=== PATIENT | female | born 2000 | race Caucasian/White ===

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

== ENCOUNTER 2019-05-21 12:15 | Outpatient (REF) | payer BC, SELFPAY ==
[2019-05-22 13:16] LABS: Chlamydia Result Negative (Negative)
[2019-05-22 15:16] LABS: GC Result Negative (Negative)
== END 2019-05-21 12:35 ==
LOC: LBO 12:15
PROVIDERS: PCP Pediatrics; Visit Provider Nurse Practitioner Family
DX: Z11.3 Encounter for screening for infections with a predominantly sexual mode of transmission (principal)
CPT/HCPCS: 87491; 87591

== ENCOUNTER 2021-06-22 11:09 | Outpatient (REF) | payer BC, SELFPAY ==
--- NOTE | 2021-06-22 10:30 | PAPFT_PTH ---
PATIENT: Cathleen Gray LOC: [facility] U#:[id number] AGE/SX: 20/F ROOM: RE06/22/[address]: LEXA Shirley : 2000 BED: DIS: 06/22/2021 SPEC #: [id number] RECD: 06/22/21 12:50 STATUS: ROSALINDA RERanjan #: [id number] PEYMAN: 06/22/21 10:[address]: Anne Mehta DEPT: [facility] RECD BY: Juhi Bhatia ENTERED: 06/22/21 12:50 SP TYPE: PAPFT ASTRID DR: Kim Nelson Tissues: 1 - CX/ENDOCX FOR PAP SMEARS Procedures: PAP THIN PREP/UVM Screening Comments: [id number]
[2021-06-24 07:27] LABS: Chlamydia Result Negative (Negative); GC Result Negative (Negative)
== END 2021-06-22 11:10 | disposition home or self-care (01) ==
LOC: LBN 11:09
PROVIDERS: PCP Nurse Practitioner Family; Visit Provider Nurse Practitioner Family
DX: Z11.3 Encounter for screening for infections with a predominantly sexual mode of transmission (principal); Z12.4 Encounter for screening for malignant neoplasm of cervix
CPT/HCPCS: 87491; 87591; 88142

== ENCOUNTER 2022-02-23 02:20 | Outpatient (CLI) | payer BC, SELFPAY ==
[2022-02-23 10:41] LABS: Kit/Specimen SENT
[2022-02-23 10:48] LABS: Abs Immature Grans 0.02 10^3/uL (0.0-0.06); Absolute Basophil Count 0.03 10^3/uL (0.0-0.2); Absolute Eosinophil Count 0.05 10^3/uL (0.0-0.7); Absolute Lymphocyte Count 1.71 10^3/uL (1.2-3.4); Absolute Neutrophil Count 4.41 10^3/uL (1.2-6.7); Basophils % 0.5; Eosinophils % 0.8; HCT 34.8 % (36.0-46.0); Immature Grans % 0.3; Lymphocytes % 25.8; MCH 30.5 pg (27.0-33.0); MCHC 34.5 % (32.0-36.0); MCV 88 fL (80-95); MPV 9.9 fL (8.0-11.0); Neutrophils % 66.6; Platelet Count 214 10^3/uL (130-400); RBC 3.94 10^6/uL (3.93-5.22); RDW 12.3 % (11.7-14.6); RDW-SD 39.8 fL; WBC 6.62 10^3/uL (4.4-10.8)
[2022-02-23 13:22] LABS: *AMPHETAMINES SCREEN URINE Negative (Negative); *BARBITURATES SCREEN URINE Negative (Negative); *BENZODIAZEPINES SCREEN URINE Negative (Negative); Cannabinoids THC Negative (Negative); Cocaine Screen,Urine Negative (Negative); METHADONE URINE SCREEN Negative (Negative); OPIATES URINE SCREEN Negative (Negative)
[2022-02-23 13:34] LABS: Tricyclic Antidepressants Negative (Negative)
[2022-02-24 09:41] LABS: Hepatitis B Surface Ag Negative (Negative)
[2022-02-24 10:08] LABS: Hepatitis C Ab w Rflx HCV PCR Negative (Negative)
[2022-02-24 10:28] LABS: HIV-1/2 Ag & Ab Screen Negative (Negative)
[2022-02-24 11:11] LABS: Varicella IgG Antibody Negative (See Note)
[2022-02-24 11:17] LABS: Rubella IgG Ab (UVM) Positive (See Note)
[2022-02-25 16:22] LABS: Syphilis IgG w/Reflex Nonreactive (Nonreactive)
[2022-02-27 15:18] LABS: Buprenorphine Negative ng/mL (Cutoff: 5.0); Norbuprenorphine Negative ng/mL (Cutoff: 2.5)
[2022-03-19 18:11] LABS: Result Summary NEGATIVE; Specimen WB Whole Blood
== END 2022-02-23 02:21 | disposition home or self-care (01) ==
LOC: LBO 02:20
PROVIDERS: PCP Nurse Practitioner Family; Visit Provider Advanced Practice Midwife
DX: Z32.01 Encounter for pregnancy test, result positive (principal); Z34.01 Encounter for supervision of normal first pregnancy, first trimester
CPT/HCPCS: 80307; 81220; 81222; 86787; 86803; 86850; 86900; 86901; 87340; 87389; 85025; 86762; 86780; 87086

== ENCOUNTER 2022-03-23 12:57 | Outpatient (REF) | payer BC, SELFPAY ==
[2022-03-24 14:44] LABS: Chlamydia Result Negative (Negative); GC Result Negative (Negative)
== END 2022-03-23 12:58 | disposition home or self-care (01) ==
LOC: LBN 12:57
PROVIDERS: PCP Nurse Practitioner Family; Visit Provider Advanced Practice Midwife
DX: Z34.92 Encounter for supervision of normal pregnancy, unspecified, second trimester (principal); Z3A.16 16 weeks gestation of pregnancy
CPT/HCPCS: 87491; 87591

== ENCOUNTER 2022-06-18 02:47 | Outpatient (CLI) | payer BC, SELFPAY ==
[2022-06-18 10:06] LABS: Abs Immature Grans 0.03 10^3/uL (0.0-0.06); Absolute Basophil Count 0.03 10^3/uL (0.0-0.2); Absolute Eosinophil Count 0.07 10^3/uL (0.0-0.7); Absolute Lymphocyte Count 1.67 10^3/uL (1.2-3.4); Absolute Monocyte Count 0.65 10^3/uL (0.1-0.8); Absolute Neutrophil Count 6.45 10^3/uL (1.2-6.7); Basophils % 0.3; Eosinophils % 0.8; HCT 32.6 % (36.0-46.0); HGB 10.9 g/dL (11.2-15.7); Immature Grans % 0.3; Lymphocytes % 18.8; MCH 30.6 pg (27.0-33.0); MCHC 33.4 % (32.0-36.0); MCV 92 fL (80-95); MPV 9.6 fL (8.0-11.0); Monocytes % 7.3; Neutrophils % 72.5; Platelet Count 311 10^3/uL (130-400); RBC 3.56 10^6/uL (3.93-5.22); RDW 12.1 % (11.7-14.6); RDW-SD 40.2 fL
[2022-06-18 10:21] LABS: Glucose,1 Hr (Glucola) 106 mg/dL (80-140)
== END 2022-06-18 02:48 | disposition home or self-care (01) ==
LOC: LBO 02:47
PROVIDERS: PCP Nurse Practitioner Family; Visit Provider Advanced Practice Midwife
DX: Z34.93 Encounter for supervision of normal pregnancy, unspecified, third trimester (principal)
CPT/HCPCS: 36415; 82950; 85025

== ENCOUNTER 2022-08-11 13:10 | Outpatient (REF) | payer BC, SELFPAY ==
[2022-08-11 13:14] LABS: *AMPHETAMINES SCREEN URINE Negative (Negative); *BARBITURATES SCREEN URINE Negative (Negative); *BENZODIAZEPINES SCREEN URINE Negative (Negative); Cannabinoids THC Negative (Negative); Cocaine Screen,Urine Negative (Negative); METHADONE URINE SCREEN Negative (Negative); OPIATES URINE SCREEN Negative (Negative)
[2022-08-11 13:35] LABS: Tricyclic Antidepressants Negative (Negative)
[2022-08-21 11:48] LABS: Buprenorphine Negative ng/mL (Cutoff: 5.0)
== END 2022-08-11 13:11 | disposition home or self-care (01) ==
LOC: LBN 13:10
PROVIDERS: PCP Nurse Practitioner Family; Visit Provider Advanced Practice Midwife
DX: Z34.93 Encounter for supervision of normal pregnancy, unspecified, third trimester (principal); Z36.85 Encounter for antenatal screening for Streptococcus B; Z3A.36 36 weeks gestation of pregnancy
CPT/HCPCS: 80307; 80348; 87081

== ENCOUNTER 2022-09-11 11:41 | Inpatient (IN) | payer BC, SELFPAY ==
[2022-09-11] VITALS (59 sets, daily range): BP systolic 100–130; BP diastolic 67–83; PULSE 0–115; TEMP 36.4–37.3
--- NOTE | 2022-09-11 11:43 | HPE_ITS ---
Date of service: 09/11/22 Time of Service: 11:43 Assessment and Plan Assessment and plan (1) Full-term premature rupture of membranes (PROM) with unknown onset of labor: Status: Acute Assessment and plan: 1. ROM plus done 2. Will get CBC, Type and screen and COVID test 3. NST reactive 4. Admit and allow for ambulation, patient prefers to avoid augmentation at this time. 5. Expect NVD. KH OB-HPI Labor/Delivery History of Present Illness Reason for Visit: PROM at term Chief Complaint: Suspected Rupture of Membranes , Associated Signs and Symptoms of Suspected ROM: ROM plus positive . MARIYA Calculator Estimated Delivery Date Method Current WG Current Estimate 09/05/22 LMP (Certain) 40w 6d Other Estimates 09/06/22 Ultrasound #1 40w 5d Comments: Cathleen reports SROM in large gush of clear fluid that puddled on the floor at 0230 today. Has had another large gush since then and some small amounts off and on. She is hoping to avoid augmentation of labor but agrees to consider pitocin by 12 hours of ROM or prn. GBS is negative. She is having occasional contractions and will walk and try to increase the intensity and frequency over the next hour or so and we will reassess. History of Present Expected Delivery Route/Plan - CARRIEM FOB/barrett Li Mat (has a 6 yo daughter) BG De Anda Plans to formula feed after informed choice discussion Varicella Non-Immune, offer vaccine Prefers no epidural GBS negative Specific Issues/Plan 1. CF/Panorama drawn, declines SMA. cfDNA low prob x5, female; CF negative 2. Distant family history of heart valve problem in child, declines level II US Assessment: History Reviewed & Current Informed Consent Informed Consent: Augmentation of Labor and Risk,Benefits,Alternatives Discussed Review of Systems All systems reviewed & are unremarkable except as noted in HPI and below PFSH All Active Problems (Updated 09/11/22 @ 11:53 by Clare Marvin CNM) Full-term premature rupture of membranes (PROM) with unknown onset of labor (Acute) Uncertain lie of fetus (Acute) (Acute) Susceptible to varicella (non-immune), currently (Acute) Migraine (Chronic) Medical History Dysmenorrhea in adolescent (06/16/16) improved with OCP's Family History Mother Essential hypertension Hyperlipidemia Father Essential hypertension Other Personal history of malignant neoplasm maternal- thyroid, breast,skin Hyperlipidemia MGM, MGF, PGF, PGM Myocardial infarction MGF, MGM, paternal side Stroke MGF, PGF Diabetes Maternal Great Grandparents, Paternal Grandmother Type II Breast cancer Maternal Great Aunt over age 50 Cancer Maternal Grandfather, FOB's mom Social History Smoking/Tobacco Use Status: Never Smoking risk assessment performed?: Yes Drug use: Never Do you feel safe at home: Yes Do you feel safe in your relationship?: Yes Female Reproductive History Menstrual Age of Menarche: 12 control method: pills History History 2 Para 0 Hx # Term Pregnancies 0 Multiple births 0 Hx # Pregnancies 0 Ectopic pregnancies 0 AB induced 0 Hx Number of Living Children 0 AB spontaneous 1 Past Pregnancies Del. Date GA/Weeks # Preg Succ Route Wgt Sex Labor Lgth Anesth esia Location Prov Complic 06/03/21 6 No No Meds Allergies and Home Medications Allergies Allergy/AdvReac Type Severity Reaction Status Date / Time No Known Allergies Allergy Verified 09/11/22 11:50 Home Medications Medication Instructions Recorded Confirmed Type vitamin with calcium 1 tab PO DAILY #90 tabs 02/01/22 09/11/22 Rx no.72-iron 27 mg-folic acid 1 mg tablet ferrous sulfate 325 mg (65 mg 325 mg PO Q OTHER DAY #90 tabs 06/18/22 09/11/22 Rx iron) tablet Exam Physical Exam Vital signs: Pulse BP 82 122/77 09/11/22 10:58 09/11/22 10:58 Vital Signs Reviewed: Yes Constitutional Constitutional: no acute distress (tearful when discussing possible augmentation of labor d/t IV) Detailed Labor and Delivery Exam Dilation: 3 Effacement (%): 80 station: -1 Position: BREE Cervix position: posterior Consistency: soft Martinez Score: Cervical Points Exam 0 1 2 3 Dilation Closed 1-2cm 3-4 cm 5-6cm Effacement 0-30% 40-50% 60-70% 80% Consistency Firm Medium Soft Station -3 -2 -1,0 +1,+2 Position Posterior Mid Anterior MARTINEZ Score(Cervical Ripeness Score): 9 Amniotic Membrane Status: Ruptured Rupture Method: Spontaneous ROM Plus: Positive Monitor Mode: External Contraction Frequency(min): irregular Contraction Duration(sec): irregular Contraction Intensity: Mild Fetus A Heart Rate Baseline: 145 Monitor Accelerations: 15 X 15 Monitor Decelerations: None Variability: Moderate (6-25 BPM) Categories: Category I Est. Weight: 7 lb 8 oz Date of Membrane Rupture: 09/11/22 Time of Membrane Rupture: 02:30 HEENT Exam HEENT Exam: Normal Neck Exam Neck Exam: Normal (visual exam) Breast Exam Breast Exam: Not Done Respiratory Exam Respiratory Exam: Normal Cardiovascular Exam Cardiovascular Exam: Normal Abdominal Exam Abdominal Exam: Normal (gravid uterus, size equals dates) Rectal Exam Rectal Exam: Not Done Exam Exam: Normal (small amount of fluid return with VE) Extremities Exam Extremities Exam: Normal Back/Spine/Pelvis Exam Back Exam: Not Done Pelvis Adequate: Yes Skin Exam Skin Exam: Normal Neurological Exam Neurological Exam: Normal Psychiatric Exam Psychiatric Exam: Normal Results Results Group Beta Strep: Negative Blood Type: O+ Rubella Status: Immune Varicella Immunity: Nonimmune Lab Results: GC/CT neg, HIV neg, Syphilis neg, Hep B & C neg, cfDNA low risk, female. CF neg. KH Risk Assessment Risk for Shoulder Dystocia Historical/Initial OB: NEGATIVE FOR: Pelvic Abnormality, Pre- BMI>30, Previous Shoulder Dystocia or Previous Macrosomia 40 Weeks: NEGATIVE FOR: EFW> 4500 gms, Maternal Weight Gain >40lb or Post Dates Delivery Plan @ 36wks: spont labor, Delivery Plan @ 40 wks: NVD KH Risk for Pre-Eclampsia Yes, if one or more: NEGATIVE FOR: Hx Pre-E/Gest HTN, Chronic HTN, Multiple Gestation, Pre-gestational DM, Renal Disease, Systemic Lupus or APA Syndrome Yes, if 2 or more: POSITIVE FOR: Nulliparity; NEGATIVE FOR: Age>= 35 yrs, >10yr btwn pregnancies, BMI>30, ethinicty, Mother/Sister w/ Pre-E or Previous IUGR Risk for Post- Hemorrhage Initial: NEGATIVE FOR: Multiple Gestation, Previous PPH, Known Clotting Deficiency, Grand Multiparity or Anticoagulation At Risk?: No Counseled re: Active Management: Yes Date/Initials: 09/11/22 Risks Reviewed Risks Reviewed Upon Admission: Yes
[2022-09-11 12:17] LABS: HCT 32.7 % (36.0-46.0); HGB 10.7 g/dL (11.2-15.7); MCH 27.9 pg (27.0-33.0); MCHC 32.7 % (32.0-36.0); MCV 85 fL (80-95); MPV 10.5 fL (8.0-11.0); Platelet Count 251 10^3/uL (130-400); RBC 3.83 10^6/uL (3.93-5.22); RDW 13.9 % (11.7-14.6); RDW-SD 42.8 fL; WBC 9.01 10^3/uL (4.4-10.8)
[2022-09-11 12:27] LABS: ROM Plus Positive
[2022-09-11 12:34] LABS: Source Nasal/Nares
[2022-09-11 13:07] LABS: COVID-19 PCR Negative (Negative)
--- NOTE | 2022-09-11 13:22 | W.PM.OBNL1 ---
Date of service: 09/11/22 Time of Service: 13:22 Informed Consent Informed Consent: Augmentation of Labor and Risk,Benefits,Alternatives Discussed Assessment and Plan Assessment and plan (1) Full-term premature rupture of membranes (PROM) with unknown onset of labor: Status: Acute Assessment and plan: 1. Patient has chosen to move forward with augmentation of labor with pitocin. 2. will try to use Novii monitor for better freedome of movement 3. Will obtain IV access and begin pitocin at 2 mu 4. We have discussed pain management options, she is hoping to avoid epidural. 5. Expect NVD. Dr. Win who is OB physician senior java web application developer is aware of patient status. KH Objective Abnormal lab results 09/11/22 Range/Units 12:09 RBC 3.83 L (3.93-5.22) 10^6/uL Hgb 10.7 L (11.2-15.7) g/dL Hct 32.7 L (36.0-46.0) % Temp Pulse BP 98.1 F 75 123/83 09/11/22 12:28 09/11/22 12:28 09/11/22 12:28 Laboratory Results WBC 9.01 10^3/uL (4.4-10.8) 09/11/22 12:09 RBC 3.83 10^6/uL (3.93-5.22) L 09/11/22 12:09 Hgb 10.7 g/dL (11.2-15.7) L 09/11/22 12:09 Hct 32.7 % (36.0-46.0) L 09/11/22 12:09 MCV 85 fL (80-95) 09/11/22 12:09 MCH 27.9 pg (27.0-33.0) 09/11/22 12:09 MCHC 32.7 % (32.0-36.0) 09/11/22 12:09 RDW 13.9 % (11.7-14.6) 09/11/22 12:09 Plt Count 251 10^3/uL (130-400) 09/11/22 12:09 MPV 10.5 fL (8.0-11.0) 09/11/22 12:09 Membranes Rupture Positive 09/11/22 11:14 COVID-19 Source Nasal/Nares 09/11/22 12:15 SARS-CoV-2 (PCR) Negative (Negative) 09/11/22 12:15 Patient ABO/Rh O Positive 09/11/22 12:09 Antibody Screen NEGATIVE 09/11/22 12:09 Vital Signs Reviewed: Yes Subjective Interval history since last seen: Cathleen and Guillermo have decided to move forward with pitocin augmentation. We have reviewed options of expectant management, misoprostol and pitocin. She is aware of risks, benefits and potential side effects to each method. At this time Cathleen feels she would prefer to move forward. Interventions Augmentation (pitocin) , Pitocin rate (mU/min): 2 Results Hemoglobin/Hematocrit: Hgb 10.7 g/dL (11.2-15.7) L 09/11/22 12:09 Hct 32.7 % (36.0-46.0) L 09/11/22 12:09 Abnormal Lab Findings: Abnormal Labs 09/11/22 12:09 RBC 3.83 L Hgb 10.7 L Hct 32.7 L
--- NOTE | 2022-09-11 14:04 | W.PM.OBNL1 ---
Date of service: 09/11/22 Time of Service: 14:04 Informed Consent Informed Consent: Augmentation of Labor and Risk,Benefits,Alternatives Discussed Assessment and Plan Assessment and plan (1) Full-term premature rupture of membranes (PROM) with unknown onset of labor: Status: Acute Assessment and plan: 1. Cathleen has changed her mind on starting pitocin as contractions are more often. She prefers to use expectant management for a few hours and reassess. 2. FHR tracing CAT I 3. plan to reassess between 4:30 and 5pm. KH Objective Abnormal lab results 09/11/22 Range/Units 12:09 RBC 3.83 L (3.93-5.22) 10^6/uL Hgb 10.7 L (11.2-15.7) g/dL Hct 32.7 L (36.0-46.0) % Temp Pulse BP 98.1 F 93 H 123/83 09/11/22 13:38 09/11/22 14:01 09/11/22 12:28 Laboratory Results WBC 9.01 10^3/uL (4.4-10.8) 09/11/22 12:09 RBC 3.83 10^6/uL (3.93-5.22) L 09/11/22 12:09 Hgb 10.7 g/dL (11.2-15.7) L 09/11/22 12:09 Hct 32.7 % (36.0-46.0) L 09/11/22 12:09 MCV 85 fL (80-95) 09/11/22 12:09 MCH 27.9 pg (27.0-33.0) 09/11/22 12:09 MCHC 32.7 % (32.0-36.0) 09/11/22 12:09 RDW 13.9 % (11.7-14.6) 09/11/22 12:09 Plt Count 251 10^3/uL (130-400) 09/11/22 12:09 MPV 10.5 fL (8.0-11.0) 09/11/22 12:09 Membranes Rupture Positive 09/11/22 11:14 COVID-19 Source Nasal/Nares 09/11/22 12:15 SARS-CoV-2 (PCR) Negative (Negative) 09/11/22 12:15 Patient ABO/Rh O Positive 09/11/22 12:09 Antibody Screen NEGATIVE 09/11/22 12:09 Subjective Interval history since last seen: Cathleen is feeling contractions more often and she would now prefer to use expectant management for a few hours to see if labor will progress naturally. FHR CAT I contractions are mild every 2-5 lasting 30-40 seconds. Current plan is to reassess between 4:30-5pm or per patient need. KH Results Hemoglobin/Hematocrit: Hgb 10.7 g/dL (11.2-15.7) L 09/11/22 12:09 Hct 32.7 % (36.0-46.0) L 09/11/22 12:09 Abnormal Lab Findings: Abnormal Labs 09/11/22 12:09 RBC 3.83 L Hgb 10.7 L Hct 32.7 L
--- NOTE | 2022-09-11 16:39 | W.PM.OBNL1 ---
Date of service: 09/11/22 Time of Service: 16:39 Informed Consent Informed Consent: Augmentation of Labor and Risk,Benefits,Alternatives Discussed Pelvic Exam Comments: VE deferred, patient is having regular contractions mod intensity every 2-4 minutes, lasting 45-70 seconds Assessment and Plan Assessment and plan (1) Full-term premature rupture of membranes (PROM) with unknown onset of labor: Status: Acute Assessment and plan: 1. Contractions have become regular and stronger without need for augmentation 2. Patient is working well with them, will continue expectant management and reassess as needed. KH Objective Abnormal lab results 09/11/22 Range/Units 12:09 RBC 3.83 L (3.93-5.22) 10^6/uL Hgb 10.7 L (11.2-15.7) g/dL Hct 32.7 L (36.0-46.0) % Temp Pulse BP 98.4 F 0 L 119/77 09/11/22 15:45 09/11/22 15:53 09/11/22 14:41 Laboratory Results WBC 9.01 10^3/uL (4.4-10.8) 09/11/22 12:09 RBC 3.83 10^6/uL (3.93-5.22) L 09/11/22 12:09 Hgb 10.7 g/dL (11.2-15.7) L 09/11/22 12:09 Hct 32.7 % (36.0-46.0) L 09/11/22 12:09 MCV 85 fL (80-95) 09/11/22 12:09 MCH 27.9 pg (27.0-33.0) 09/11/22 12:09 MCHC 32.7 % (32.0-36.0) 09/11/22 12:09 RDW 13.9 % (11.7-14.6) 09/11/22 12:09 Plt Count 251 10^3/uL (130-400) 09/11/22 12:09 MPV 10.5 fL (8.0-11.0) 09/11/22 12:09 Membranes Rupture Positive 09/11/22 11:14 COVID-19 Source Nasal/Nares 09/11/22 12:15 SARS-CoV-2 (PCR) Negative (Negative) 09/11/22 12:15 Patient ABO/Rh O Positive 09/11/22 12:09 Antibody Screen NEGATIVE 09/11/22 12:09 Subjective Interval history since last seen: Cathleen is doing well with her contractions. She has used shower and sitting position to assist her with discomfort. Emesis times 1. KH Results Hemoglobin/Hematocrit: Hgb 10.7 g/dL (11.2-15.7) L 09/11/22 12:09 Hct 32.7 % (36.0-46.0) L 09/11/22 12:09 Abnormal Lab Findings: Abnormal Labs 09/11/22 12:09 RBC 3.83 L Hgb 10.7 L Hct 32.7 L
[2022-09-11] MEDS: Oxytocin 10 UNITS/ML VIAL IM (19:21)
[2022-09-11] MEDS: Lidocaine 1% Multi-Dose 20 ML VIAL IJ (19:30)
--- NOTE | 2022-09-11 19:46 | OBVDS_ITS ---
Date of service: 09/11/22 Time of Service: 19:46 OB Labor/ Delivery Information Baby A Delivery Delivery Method: Spontaneaous Presentation: Cephalic Cephalic Position: Vertex Vertex Position: Left Occipital Anterior Cord Description-Baby A: 3 Vessels, Nuchal Cord (X 1 loose) and Clamped/Cut Amniotic Fluid: Clear Estimated Blood Loss: 250 Delivery Outcome: Liveborn Complications: none Infant Transferred: Remains with Mother Providers Nurse Glassware Verifier: Clare Marvin Nurse: Nicole Wilkins Nurse: Leah Perez Labor/Delivery Information Number of Babies in Womb: 1 Steroids Given: None Reason Steroids Not Administered: N/A Group Beta Strep: Negative Antibiotics Administered: No Rubella Status: Immune Blood Type: O+ Varicella Immunity: Nonimmune Maternal Complications: None Shoulder Dystocia: No Note: Cathleen presented with complaint of ROM at 0230 today. She preferred to await spontaneous labor for 12 hours before augmentation. FHR tracing CAT I. At approximately 12 hours of ROM contractions began to be regular and increasing in intensity. Cathleen utilized nitrous for pain relief. She began to have some involuntary urges to push and was unable to prevent pushing effort. VE at 1845 10cm +3. Second stage huddle was done. FHR remained 120's by doppler. Cathleen pushed in hands and knees position with good effort. Baby girl Neetu delivered BREE over small 2nd degree vaginal laceration at 1919. Nuchal cord X1 loose was reduced before shoulders delivered. Baby was handed through Cathleen's legs to be brought to her abdomen and she was able to reposition herself to semi-fowlers. Cord bloods obtained after 90 seconds of delayed cord clamping and cord then being double clamped and cut by Guillermo ACE. Positive family bonding noted. Placenta delivered spontaneously, intact at 1924. 10 units of Pitocin was given IM at 1920. Fundus firms to U-1 with massage. Laceration was infiltrated with 1% lidocaine and repaired with 1 stitch of 3.0 chromic as patient had difficulty tolerating touch. Sponge, needle and instrument count are correct. Mother and baby are in satisfactory condition. Cathleen plans to formula feed her baby. score at 1 minute was 8 and at 5 minutes 9. Weight 7lb9oz. Stages of Labor Onset of Labor Date: 09/11/22 Onset of Labor Time: 02:30 Complete Dilatation Date: 09/11/22 Complete Dilatation Time: 18:45 Labor - Stage 1 Duration: 16 hours and 15 minutes ROM Baby A: 09/11/22 ROM Baby A: 02:30 ROM Total Time- Baby A: [id number] Delivery Date-Baby A: 09/11/22 Infant Delivery Time-Baby A: 19:19 Labor Stage 2 Duration: 34 minutes Placenta Delivery Date-Baby A: 09/11/22 Placenta Delivery Time-Baby A: 19:24 Labor-Stage 3 Duration: 5 minutes Total Length of Labor-Baby A: 16 hours and 49 minutes Placenta Cultured: No Placenta Status: Delivered Baby A Gender: Female Gestational Status: Term (39-41.6 wks) Gestational Age in Weeks/Days: 40 Weeks and 6 Days Score-1 Minute Interval(Baby A) Heart Rate-1 minute: 100 BPM or Greater Respiratory Effort- 1 minute: Spontaneous/Strong Cry Muscle Tone-1 minute: Minimal Flexion/Extension Reflex Response-1 minute: Prompt Response Color-1 minute: Bluish Hands or Feet Total Score-1 minute: 8 Score-5 Minute Interval(Baby A) Heart Rate- 5 minute: 100 BPM or Greater Respiratory Effort-5 minute: Spontaneous/Strong Cry Muscle Tone-5 minute: Active Movement Reflex Response-5 minute: Prompt Response Color-5 minute: Bluish Hands or Feet Total Score- 5 minute: 9
[2022-09-11] MEDS: Docusate Sodium 100 MG CAP PO (20:55)
[2022-09-11] MEDS: Ibuprofen 600 MG TAB PO (20:55)
[2022-09-11] MEDS: Acetaminophen 325 MG TAB 650 MG PO (20:55)
[2022-09-12 00:07] VITALS: BP 118/75; PULSE 88; TEMP 36.9
[2022-09-12 05:56] VITALS: BP 111/71; PULSE 77; TEMP 36.6
[2022-09-12 08:37] VITALS: BP 110/71; PULSE 98; RESP 16; TEMP 36.5
--- NOTE | 2022-09-12 09:03 | W.PM.OBPNV1 ---
Date of service: 09/12/22 Time of Service: 09:03 Assessment and Plan Assessment and plan (1) care following vaginal delivery: Status: Acute Assessment and plan: 1. Doing well, normal PP state. 2. Is not interested in breast feeding or pumping her breasts for breast milk for baby, she feels certain of her choice to formula feed. 3. Varicella non immune. Will get dose prior to discharge if available otherwise will need at PP week 2 visit. 4. discussed plan if baby is able to be discharged tonight, to return in 2 weeks to [facility]. PP warning signs reviewed. She denies need for medications or services at time of discharge. Subjective Subjective Interval history: Doing well. voiding without difficulty. Small lochia. She is not breast feeding and or pumping breast milk. She feels certain of her choice and is able to verbalize reasons that breast milk is encouraged and is still commited to her choice. baby status: Doing well, Bottle feeding well and Rooming in Exam Physical Exam Vital signs: Temp Pulse Resp BP 97.7 F 98 H 16 110/71 09/12/22 08:37 09/12/22 08:37 09/12/22 08:37 09/12/22 08:37 Vital Signs Reviewed: Yes Constitutional Constitutional: no acute distress, average body habitus and cooperative HEENT Exam HEENT Exam: Normal Neck Exam Neck Exam: Normal (normal visual inspection) Respiratory Exam Respiratory Exam: Normal Cardiovascular Exam Cardiovascular Exam: Normal Abdominal Exam Abdomen: Other (normal exam) Fundal Exam Fundus: Below Umbilicus and Firm Comment: small lochia noted. Rectal Exam Rectal Exam: Not Done Exam Perineum: Normal and Repair Intact Extremities Exam Extremity Exam: Normal (denies calf tenderness) and Full ROM Back/Spine/Pelvis Exam Back Exam: Normal Skin Exam Skin Exam: Normal Neurological Exam Neurological Exam: Normal Psychiatric Exam Psychiatric Exam: Normal Results Hemoglobin/Hematocrit: Hgb 10.7 g/dL (11.2-15.7) L 09/11/22 12:09 Hct 32.7 % (36.0-46.0) L 09/11/22 12:09 Abnormal Lab Findings: Abnormal Labs 09/11/22 12:09 RBC 3.83 L Hgb 10.7 L Hct 32.7 L
[2022-09-12 12:10] VITALS: BP 118/75; PULSE 98; RESP 14; TEMP 36.5
--- NOTE | 2022-09-12 14:47 | W.PM.OBDISCH ---
Date of service: 09/12/22 Time of Service: 14:47 DS: Diagnosis Discharge Diagnosis (1) care following vaginal delivery: Status: Acute Asessment and Plan: 1. Discharge to home per patient desire at approximately 24 hours PP, in satisfactory condition 2. Normal PP course. Shipping Weigher has reviewed warning signs to call provider cement production plant operator for and given written educational information as well. 3. RTO in 2 and 6 weeks or prn 4. If VZV vaccine is not available at discharge, will give at 2 week PP visit. Discharge Plan Disposition Patient Disposition: Home Condition: Good Discharge Details Reason For Visit: PROM at term Admit Date/Time: 09/11/22 11:41 Admit Provider: Clare Marvin Attending Provider: Clare Marvin Primary Care Provider: Kim Nelson Hospital Course Hospital Course: PROM for 12 hours prior to labor starting. Active labor and delivery in less than 6 hours. NVD, nuchal cord loose X1 of live female. 2nd degree vaginal intoitus laceration repaired with 3.0 chromic. Normal PP course and discharge at approximately 24 hours. RTO in 2 and 6 weeks PP. Home Meds and New Rx's Prescriptions: Continued PNV,calcium [id number] acid 27 mg iron- 1 mg tablet 1 tab PO DAILY Qty: 90 3RF Rx Instructions: give with food (meal/snack) ferrous sulfate 325 mg (65 mg iron) tablet 325 mg PO Q OTHER DAY Qty: 90 1RF Discharge Instructions Instructions: Depression (GEN), Chickenpox Vaccine (GEN), Breast Care for the Non- Mother (DC) Stand Alone Forms: BC Post Vaginal Deliver Activity:: Activity as Tolerated Equipment/Supplies:: No Equipment Needed Diet:: As Tolerated Discharge Orders Discharge Orders: Discharge Order (Routine); Ordered 09/12/22 Ordered By: Clare Marvin OB:DS Summary Summary Vaginal Delivery Method: Spontaneaous Episiotomy Description: None Laceration Extension: Second Degree Contraception Discussed Contraception Discussed: Yes (undecided), [place] Infant Gender-Baby A: Female weight: 7 lb 9 oz Disposition of Baby A: Home Status at Discharge Functional status at discharge: independent ambulation Overall status at discharge: patient is back to baseline Mental Status: mental status grossly normal Speech and Movement: speech and movement normal Mood: congruent mood Affect: normal affect Time Spent with Patient providing and/or coordinating discharge services: Less than 30 minutes Exam Physical Exam Vital signs: Temp Pulse Resp BP 97.7 F 98 H 14 118/75 09/12/22 12:10 09/12/22 12:10 09/12/22 12:10 09/12/22 12:10 Vital Signs Reviewed: Yes Narrative: Physical exam unchanged from assessment earlier today. Constitutional Constitutional: no acute distress, average body habitus and cooperative HEENT Exam HEENT Exam: Normal Neck Exam Neck Exam: Normal (normal visual inspection) Respiratory Exam Respiratory Exam: Normal Cardiovascular Exam Cardiovascular Exam: Normal Abdominal Exam Abdomen: Other (normal exam) Fundal Exam Fundus: Below Umbilicus and Firm Comment: small lochia noted. Rectal Exam Rectal Exam: Not Done Exam Perineum: Normal and Repair Intact Extremities Exam Extremity Exam: Normal (denies calf tenderness) and Full ROM Back/Spine/Pelvis Exam Back Exam: Normal Skin Exam Skin Exam: Normal Neurological Exam Neurological Exam: Normal Psychiatric Exam Psychiatric Exam: Normal PFSH All Active Problems care following vaginal delivery (Acute) Uncertain lie of fetus (Acute) (Acute) Susceptible to varicella (non-immune), currently (Acute) Migraine (Chronic) Medical History Dysmenorrhea in adolescent (06/16/16) improved with OCP's Full-term premature rupture of membranes (PROM) with unknown onset of labor Family History Mother Essential hypertension Hyperlipidemia Father Essential hypertension Other Personal history of malignant neoplasm maternal- thyroid, breast,skin Hyperlipidemia MGM, MGF, PGF, PGM Myocardial infarction MGF, MGM, paternal side Stroke MGF, PGF Diabetes Maternal Great Grandparents, Paternal Grandmother Type II Breast cancer Maternal Great Aunt over age 50 Cancer Maternal Grandfather, FOB's mom Social History Smoking/Tobacco Use Status: Never Smoking risk assessment performed?: Yes Drug use: Never Do you feel safe at home: Yes Do you feel safe in your relationship?: Yes Female Reproductive History Menstrual Age of Menarche: 12 control method: pills History History 2 Para 0 Hx # Term Pregnancies 0 Multiple births 0 Hx # Pregnancies 0 Ectopic pregnancies 0 AB induced 0 Hx Number of Living Children 0 AB spontaneous 1 Past Pregnancies Del. Date GA/Weeks # Preg Succ Route Wgt Sex Labor Lgth Anest[facility] No No DS: Data Vitals/I&O Vitals and I&O: Vital Signs Temperature 97.7 F 09/12/22 12:10 Temperature 98.8 F 09/11/22 10:56 Temperature Source Oral 09/12/22 12:10 Pulse 98 H 09/12/22 12:10 Pulse 82 09/11/22 10:56 Pulse Rhythm Regular 09/12/22 08:36 Respiratory Rate 14 09/12/22 12:10 Respiratory Depth Normal 09/11/22 22:02 Blood Pressure 118/75 09/12/22 12:10 Blood Pressure 122/77 09/11/22 10:56 Blood Pressure Mean 89 09/12/22 12:10 Intake & Output 09/11/22 09/12/22 09/12/22 23:59 11:59 23:59 Intake Total 500 / 500 Output Total 500 / 750 2850 / 2850 Balance 0 / -250 -2850 / -2850 Weight 170 lb Intake: Oral 500 / 500 Output: Urine 500 / 750 2850 / 2850 Other: Urine Color Yellow Urine Appearance Clear
[2022-09-12 15:35] VITALS: BP 120/74; PULSE 77; RESP 16; TEMP 36.6; O2SAT 100
[2022-09-12] MEDS: Docusate Sodium 100 MG CAP PO (15:59)
[2022-09-12 19:16] VITALS: BP 113/73; PULSE 93; RESP 16; TEMP 37.1; O2SAT 100
== END 2022-09-12 20:36 | disposition home or self-care (01) | DRG 807 ==
LOC: OBS 11:54 → BCD 09-27 13:56
PROVIDERS: Admitting Provider Advanced Practice Midwife; PCP Nurse Practitioner Family; Visit Provider Advanced Practice Midwife
DX: O42.02 Full-term premature rupture of membranes, onset of labor within 24 hours of rupture (principal); Z37.0 Single live birth; Z3A.41 41 weeks gestation of pregnancy; O69.81X0 Labor and delivery complicated by cord around neck, without compression, not applicable or unspecified; O70.1 Second degree perineal laceration during delivery
CPT/HCPCS: 84112; 85027; 86850; 86900; 86901; 87635; J2590; J3490

== ENCOUNTER 2023-02-23 10:44 | Emergency (ER) | payer BC, SELFPAY ==
[2023-02-23 10:53] VITALS: BP 112/63; PULSE 93; RESP 16; TEMP 36.8; O2SAT 98
--- NOTE | 2023-02-23 11:30 | DI.RAD_ITS ---
Exam(s) XR FOOT RT COMPLETE EXAM: XR FOOT RT COMPLETE CLINICAL HISTORY: stepped on nail, pain, swelling, distal 1 MT. TECHNIQUE: 2D digital imaging was performed of the right foot. Images were obtained. AP, oblique and lateral views were obtained. COMPARISON: No exams were available for comparison FINDINGS: BONES: No acute fracture is present. No bony destructive lesion is seen. JOINTS: No dislocation present. SOFT TISSUE: No radiopaque foreign bodies or gas is seen in the soft tissues. There is soft tissue s welling seen at the forefoot. IMPRESSION: 1. No acute fracture or dislocation. 2. Soft tissue swelling of the foot but no evidence of a radiopaque foreign body or soft tissue gas. DATA REPOSITORY: RADIATION DOSE DELIVERED:
[2023-02-23] MEDS: Ciprofloxacin 500 MG TAB PO (12:02)
[2023-02-23] MEDS: Cephalexin 500 MG CAP PO (12:02)
--- NOTE | 2023-02-23 12:42 | ED.GENADUL_ITS ---
Discharge Plan Disposition Patient Disposition: Home Condition: Stable Discharge Details Clinical Impression: Puncture wound of foot, right Primary Care Provider: Caterina,Local ED Provider: Jeremy Marques Home Meds and New Rx's Prescriptions: New ciprofloxacin HCl 500 mg tablet 500 mg PO BID Qty: 10 0RF cephalexin 500 mg capsule 500 mg PO QID Qty: 20 0RF Continued varicella virus vacc live (PF) 1,350 unit/0.5 mL suspension for reconstitution 0.5 ml subcut Q8W Qty: 1 0RF Rx Instructions: Patient will follow-up in 4 weeks for repeat injection. Discontinued PNV,calcium [id number] acid 27 mg iron- 1 mg tablet 1 tab PO DAILY Qty: 90 3RF Rx Instructions: give with food (meal/snack) norgestimate-ethinyl estradiol [Sprintec (28)] 0.25-35 mg-mcg tablet 1 tab PO DAILY Qty: 84 3RF Discharge Instructions Instructions: Puncture Wound (ED) Additional Instructions: Please take antibiotic as prescribed. Please follow-up with your primary care physician. Return to the emergency department immediately for any worsening or new concerning symptoms. Medical Decision Making 22-year-old female here with puncture wound to the right foot that occurred 3 days ago, persistent pain and swelling. No associated erythema. X-ray of the right foot was reviewed and interpreted by me: No fracture. Offered crutches and patient declined. Plan to treat prophylactically with ciprofloxacin and Keflex. Usual and customary discharge instructions were reviewed with the patient HPI General Mode of arrival: ambulatory . Date/Time Provider Initiated Documentation: 02/23/23 11:05 . Limitations to Documentation: no limitations . Information obtained by: patient . HPI Narrative: 22-year-old female presents with chief complaint of puncture wound. Patient notes she stepped on a nail through her [employer]ken[employer] sandals about 3 days ago. She states foot feels more swollen this morning. She has pain when she ambulates no associated rash or fever. Related Data Home Medications Medication Instructions Recorded Confirmed varicella virus vacc live (PF) 0.5 ml subcut Q8W 2 doses #1 ea 09/27/22 10/28/22 1,350 unit/0.5 mL subcutaneous susp cephalexin 500 mg capsule 500 mg PO QID #20 caps 02/23/23 ciprofloxacin HCl 500 mg tablet 500 mg PO BID #10 tabs 02/23/23 Previous Rx's Medication Instructions Recorded varicella virus vacc live (PF) 0.5 ml subcut Q8W 2 doses #1 ea 09/27/22 1,350 unit/0.5 mL subcutaneous susp cephalexin 500 mg capsule 500 mg PO QID #20 caps 02/23/23 ciprofloxacin HCl 500 mg tablet 500 mg PO BID #10 tabs 02/23/23 Allergies Allergy/AdvReac Type Severity Reaction Status Date / Time No Known Allergies Allergy Verified 02/23/23 12:49 General Stated Complaint: Cellulitis MINESH: 3 Review of Systems Musculoskeletal Musculoskeletal: Reports as per HPI PFSH All Active Problems (Updated 02/23/23 @ 12:47 by Jeremy Marques MD) Puncture wound of foot, right (Acute) Anemia (Chronic) care following vaginal delivery (Acute) Susceptible to varicella (non-immune), currently (Acute) 03/2023. #1 of 2 varicella vaccines given Migraine (Chronic) Medical History Dysmenorrhea in adolescent (06/16/16) improved with OCP's Full-term premature rupture of membranes (PROM) with unknown onset of labor Uncertain lie of fetus Family History Mother Essential hypertension Hyperlipidemia Father Essential hypertension Other Personal history of malignant neoplasm maternal- thyroid, breast,skin Hyperlipidemia MGM, MGF, PGF, PGM Myocardial infarction MGF, MGM, paternal side Stroke MGF, PGF Diabetes Maternal Great Grandparents, Paternal Grandmother Type II Breast cancer Maternal Great Aunt over age 50 Cancer Maternal Grandfather, FOB's mom Social History Smoking/Tobacco Use Status: Never Smoking risk assessment performed?: Yes Alcohol Intake: never Drug use: Never Household members: significant other, children and other Details: Sophia Hernandez Housing: house Number of Children: 1 current occupation: [employer] on [employer]. Plans to work part-time from home Do you feel safe at home: Yes Do you feel safe in your relationship?: Yes Female Reproductive History Menstrual Age of Menarche: 12 control method: pills History History 2 Para 1 Hx # Term Pregnancies 1 Multiple births 0 Hx # Pregnancies 0 Ectopic pregnancies 0 AB induced 0 Hx Number of Living Children 1 AB spontaneous 1 Past Pregnancies Del. Date GA/Weeks # Preg Succ Route Wgt Sex Labor Lgth Anesth esia Location Prov Complic 06/03/21 6 No No 09/11/22 40 No Yes vaginal 3430.292 g Female Farhad JEREMIAH salgado Delivery Date: 09/11/22 Last Updated by: MADAN Luna; Exam Extrem Right lower extremity: foot (Puncture wound sole of the foot near first MTP, mild swelling, no erythema) Details: tenderness (About the puncture wound) Other: Distal neurovascular intact Course Vital Signs Vital signs: Vital Signs Temperature 36.8 C 02/23/23 10:53 Pulse 93 H 02/23/23 10:53 Respiratory Rate 16 02/23/23 10:53 Blood Pressure 112/63 02/23/23 10:53 Pulse Oximetry 98 02/23/23 10:53 Temperature 36.8 C 02/23/23 10:53 Pulse 93 H 02/23/23 10:53 Respiratory Rate 16 02/23/23 10:53 Respiratory Effort Normal, Non-Labored 02/23/23 10:57 Blood Pressure 112/63 02/23/23 10:53 Pulse Oximetry 98 02/23/23 10:53 Oxygen Delivery Method Room Air 02/23/23 10:53 Oxygen Flow Rate 0 02/23/23 10:53 Pain Level 6 02/23/23 10:53
--- NOTE | 2023-02-23 12:49 | NUR.NOTE ---
Nursing Note: PT needs to establish care with a PCP within the next two weeks. Renee, ED
[2023-02-23 12:58] VITALS: BP 107/72; PULSE 68; RESP 14; TEMP 36.6; O2SAT 98
== END 2023-02-23 14:42 | disposition home or self-care (01) ==
PROVIDERS: Emergency Provider Student in an Organized Health Care Education/Training Program
DX: S91.331A Puncture wound without foreign body, right foot, initial encounter; W22.8XXA Striking against or struck by other objects, initial encounter
CPT/HCPCS: 99283; 73630; 99284

== ENCOUNTER 2023-05-11 03:59 | Outpatient (CLI) | payer BC, SELFPAY ==
[2023-05-11 15:06] LABS: Panorama Kit Sent via Fed Ex
[2023-05-12 09:10] LABS: Hepatitis B Surface Ag Negative (Negative)
[2023-05-12 09:54] LABS: Hepatitis C Ab w Rflx HCV PCR Negative (Negative)
[2023-05-12 10:00] LABS: Varicella IgG Antibody Positive (See Note)
[2023-05-12 10:02] LABS: HIV-1/2 Ag & Ab Screen Negative (Negative)
[2023-05-12 10:05] LABS: Rubella IgG Ab (UVM) Positive (See Note)
[2023-05-15 13:54] LABS: Syphilis IgG w/Reflex Nonreactive (Nonreactive)
[2023-05-16 17:24] LABS: Specimen WB Whole Blood
== END 2023-05-11 04:00 | disposition home or self-care (01) ==
LOC: LBO 04:00
PROVIDERS: Visit Provider Advanced Practice Midwife
DX: Z34.91 Encounter for supervision of normal pregnancy, unspecified, first trimester
CPT/HCPCS: 36410; 81329; 86787; 86803; 86850; 86900; 86901; 87340; 87389; 86762; 86780

== ENCOUNTER 2023-05-11 14:49 | Outpatient (REF) | payer BC, SELFPAY ==
[2023-05-11 15:40] LABS: *AMPHETAMINES SCREEN URINE Negative (Negative); *BARBITURATES SCREEN URINE Negative (Negative); *BENZODIAZEPINES SCREEN URINE Negative (Negative); Cannabinoids THC Negative (Negative); Cocaine Screen,Urine Negative (Negative); METHADONE URINE SCREEN Negative (Negative); OPIATES URINE SCREEN Negative (Negative)
[2023-05-11 15:43] LABS: Tricyclic Antidepressants Negative (Negative)
[2023-05-12 14:55] LABS: Chlamydia Result Negative (Negative); GC Result Negative (Negative)
[2023-05-17 08:21] LABS: Buprenorphine Negative ng/mL (Cutoff: 5.0); Norbuprenorphine Negative ng/mL (Cutoff: 2.5)
== END 2023-05-11 14:50 | disposition home or self-care (01) ==
LOC: LBN 14:49
PROVIDERS: Visit Provider Advanced Practice Midwife
DX: Z34.91 Encounter for supervision of normal pregnancy, unspecified, first trimester (principal)
CPT/HCPCS: 80307; 80348; 87491; 87591; 87086

== ENCOUNTER 2023-09-07 05:04 | Outpatient (CLI) | payer BC, SELFPAY ==
[2023-09-07 09:55] LABS: HCT 32.2 % (36.0-46.0); HGB 10.1 g/dL (11.2-15.7); MCH 25.8 pg (27.0-33.0); MCHC 31.4 % (32.0-36.0); MCV 82 fL (80-95); MPV 9.8 fL (8.0-11.0); Platelet Count 295 10^3/uL (130-400); RBC 3.91 10^6/uL (3.93-5.22); RDW 14.1 % (11.7-14.6); WBC 6.84 10^3/uL (4.4-10.8)
[2023-09-07 10:55] LABS: Glucose,1 Hr (Glucola) 87 mg/dL (80-140)
== END 2023-09-07 05:05 | disposition home or self-care (01) ==
LOC: LBO 05:05
PROVIDERS: Advanced Practice Midwife; Visit Provider Advanced Practice Midwife
DX: Z34.93 Encounter for supervision of normal pregnancy, unspecified, third trimester (principal); Z3A.29 29 weeks gestation of pregnancy
CPT/HCPCS: 36415; 82950; 85027

== ENCOUNTER 2023-10-25 16:10 | Outpatient (REF) | payer BC, SELFPAY | END 2023-10-25 16:11 | disposition home or self-care (01) | LOC: LBN 16:10 | PROVIDERS: Visit Provider Advanced Practice Midwife | DX: Z34.90 Encounter for supervision of normal pregnancy, unspecified, unspecified trimester (principal); B95.1 Streptococcus, group B, as the cause of diseases classified elsewhere | CPT/HCPCS: 87081 ==

== ENCOUNTER 2023-11-09 05:19 | Outpatient (CLI) | payer BC, SELFPAY ==
[2023-11-09 10:49] LABS: HCT 30.3 % (36.0-46.0); HGB 9.6 g/dL (11.2-15.7); MCH 24.7 pg (27.0-33.0); MCHC 31.7 % (32.0-36.0); MCV 78 fL (80-95); MPV 10.3 fL (8.0-11.0); Platelet Count 278 10^3/uL (130-400); RBC 3.88 10^6/uL (3.93-5.22); RDW 16.8 % (11.7-14.6); RDW-SD 45.8 fL
== END 2023-11-09 05:20 | disposition home or self-care (01) ==
LOC: LBO 05:19
PROVIDERS: Visit Provider Advanced Practice Midwife
DX: Z34.93 Encounter for supervision of normal pregnancy, unspecified, third trimester (principal); Z3A.38 38 weeks gestation of pregnancy
CPT/HCPCS: 36415; 85027

== ENCOUNTER 2023-11-09 11:08 | Outpatient (CLI) | payer BC, SELFPAY ==
[2023-11-09] MEDS: IRON SUCROSE COMPLEX 300 MG in Normal Saline 250 ML 167 MG IVPB (17:03)
== END 2023-11-09 18:44 ==
LOC: BCD 11:08 → OBS 14:36
PROVIDERS: Visit Provider Advanced Practice Midwife
DX: D64.9 Anemia, unspecified (principal)
CPT/HCPCS: 96365; 96366; J1756

== ENCOUNTER 2023-11-13 21:37 | Inpatient (IN) | payer BC, SELFPAY ==
[2023-11-13 20:49] VITALS: BP 112/66; PULSE 79; RESP 16; TEMP 37.2
[2023-11-13 20:50] VITALS: BP 112/66; PULSE 79; TEMP 37.3
[2023-11-13 21:30] VITALS: BP 112/66; PULSE 79; TEMP 37.2
--- NOTE | 2023-11-13 21:39 | W.OBNST ---
Date of service: 11/13/23 Time of Service: 21:40 NST Evaluation Reason for NST Reasons for Nonstress Test: OTHER, SEE COMMENT Reason for NST Other: SROM Gestational Age Gestational Age in Weeks and Days: 39 Weeks and 0Days Test and Monitor Explained Test/Monitor Explained: Test Explained, Monitor Explained and Patient Verbalized Understanding Vital Signs Blood Pressure: 112/66 Pulse: 79 Temperature: 99 F Urine Results Urine Protein: Positive Urine Ketones: Negative Urine Glucose: Negative Urine Blood: Positive NST Information Date on Monitor: 11/13/23 Time on Monitor: 20:45 Date off Monitor: 11/13/23 Time off Monitor: 21:19 Total Time on Monitor: 34 NST Interventions: None Contraction Frequency: 3-7 NST Evaluation Patient States Movement: Present FHR Baseline: 135 Variability: Moderate 6-25 bpm Accelerations: 15x15 Decelerations: Early NST Results: Reactive Note Ultrasound Done: N/A. NST Note Note: VTX by Tom's. Reports leaking clear fluid vaginally. ROM + obtained by patient in BR, she is hoping to avoid VE unless she is in labor. NST is reactive. Plan to admit and treat GBS prophylaxis and await labor for up to 12 hours as patient declines labor augmentation/induction for ROM. RUTH NST Reviewed and Verified by: Clare Marvin
[2023-11-13 21:41] VITALS: BP 112/66; PULSE 79; TEMP 37.2
[2023-11-13 21:44] LABS: ROM Plus Positive
--- NOTE | 2023-11-13 21:45 | HPE_ITS ---
Date of service: 11/13/23 Time of Service: 21:48 Assessment and Plan Assessment and plan (1) Full-term premature rupture of membranes: Status: Acute Assessment and plan: 1. Admit, IV access, CBC and type and screen 2. Patient was counseled that augmentation of labor is recommended with positive GBS status and ROM. She prefer to await normal labor as long as she and baby are doing well. 3. VE declined until active labor or if indicated by maternal status, will support her wishes 4. Will do 20 minute tracing and VS every 4 hours over night and if not in active labor in the morning will recommend VE and augmentation of labor again. (2) Group B Streptococcus carrier, +RV culture, currently : Status: Acute Assessment and plan: 1. PCN prophylaxis ordered every 4 hours until delivery. RUTH OB-HPI Labor/Delivery History of Present Illness Reason for Visit: PROM at Term Chief Complaint: Suspected Rupture of Membranes , Associated Signs and Symptoms of Suspected ROM: leaking continuously since 1800 today. MARIYA Calculator Estimated Delivery Date Method Current WG Current Estimate 11/20/23 Ultrasound #1 39w 0d Other Estimates 11/28/23 LMP (Uncertain) 37w 6d Comments: Noelle present for complaint of ROM at 1800 with clear fluid. She reports continuous leaking. ROM + is positive. She prefers to avoid VE until active labor or if indicated. She is GBS positive and agrees to PCN prophylaxis but is also hoping for expectant management for labor. She had ROM last X 12 hours and then became active and had NVD. Denies bleeding. Baby has been active. has been uncomplicated. RUTH History of Present Expected Delivery Route/Plan - CNM FOB - Guillermo Rivero (2nd child together, also a child from previous relationship) BB yes to circ Formula feeding Plans to use nitrous, otherwise unmedicated, access to shower GBS positive, discussed with Cathleen Specific Issues/Plan 1. Short interval conceptual period 2. Paternal aunt hx of heart valve defect - in childhood, declines level II US 3. Panorama low risk, male, SMA neg, CF negative (known), AFP declined 4. Anemia in , hgb 10.1 @ 28 wks, start iron tablets daily 4b. Hgb by fingerstick 9.5. Hoping to avid IV infusion. lab draw CBC at 38 weeks. Assessment: History Reviewed & Current Informed Consent Informed Consent: Augmentation of Labor and Risk,Benefits,Alternatives Discussed (patient declines at this time and wants to wait 12 hours for onset of labor if she and baby are doing well despite being GBS +. She agrees to PCN prophylaxis during this period of time.) Review of Systems All systems reviewed & are unremarkable except as noted in HPI and below (no other concerns) PFSH All Active Problems (Updated 11/13/23 @ 21:56 by Clare Marvin CNM) Full-term premature rupture of membranes (Acute) Group B Streptococcus carrier, +RV culture, currently (Acute) Anemia affecting (Acute) (Acute) Anemia (Chronic) Migraine (Chronic) Medical History Delayed menses Surgical History [place] teeth extracted Family History Mother Essential hypertension Hyperlipidemia Father Essential hypertension Other Personal history of malignant neoplasm maternal- thyroid, breast,skin Hyperlipidemia MGM, MGF, PGF, PGM Myocardial infarction MGF, MGM, paternal side Stroke MGF, PGF Diabetes Maternal Great Grandparents, Paternal Grandmother Type II Breast cancer Maternal Great Aunt over age 50 Cancer Maternal Grandfather, FOB's mom Social History Smoking/Tobacco Use Status: Never Smoking risk assessment performed?: Yes Alcohol Intake: never Drug use: Never Household members: significant other, children and other Details: Sophia Hernandez Housing: house Number of Children: 1 current occupation: [employer] on [employer]. Plans to work part-time from home Do you feel safe at home: Yes Do you feel safe in your relationship?: Yes Female Reproductive History Menstrual Age of Menarche: 12 control method: pills History History 3 Para 1 Hx # Term Pregnancies 1 Multiple births 0 Hx # Pregnancies 0 Ectopic pregnancies 0 AB induced 0 Hx Number of Living Children 1 AB spontaneous 1 Past Pregnancies Del. Date GA/Weeks # Preg Succ Route Wgt Sex Labor Lgth Anesth esia Location Prov Complic 06/03/21 6 No No 09/11/22 40 No Yes vaginal 7 lb 9 oz Female Guillaume faust CNM Delivery Date: 09/11/22 Last Updated by: MADAN Luna; Meds Allergies and Home Medications Allergies Allergy/AdvReac Type Severity Reaction Status Date / Time No Known Allergies Allergy Verified 11/13/23 21:54 Home Medications Medication Instructions Recorded Confirmed Type acetaminophen 325 mg capsule 325 mg PO ONCE PRN 04/27/23 11/13/23 History (Tylenol) vits 75-iron 28 mg-folic 1 pkg PO DAILY 04/27/23 11/13/23 History acid 800 mcg-omega3 440 mg oral pack (One Daily ) ferrous sulfate 325 mg (65 mg 325 mg PO DAILY #60 tabs 09/07/23 11/13/23 Rx iron) tablet,delayed release Exam Physical Exam Vital signs: Temp Pulse Resp BP 99.1 F 79 16 112/66 11/13/23 20:50 11/13/23 20:50 11/13/23 20:49 11/13/23 20:50 Vital Signs Reviewed: Yes Constitutional Constitutional: no acute distress and average body habitus Detailed Labor and Delivery Exam Position: ROP Reina Score: Cervical Points Exam 0 1 2 3 Dilation Closed 1-2cm 3-4 cm 5-6cm Effacement 0-30% 40-50% 60-70% 80% Consistency Firm Medium Soft Station -3 -2 -1,0 +1,+2 Position Posterior Mid Anterior Amniotic Membrane Status: Ruptured Rupture Method: Spontaneous ROM Plus: Positive Contraction Frequency(min): irregular Contraction Duration(sec): 60 Contraction Intensity: Mild Fetus A Heart Rate Baseline: 125 Assessment Note: NST was reactive and reassuring, currently off monitor resting. KH HEENT Exam HEENT Exam: Normal Neck Exam Neck Exam: Normal (visual exam) Chest/Brest/Axilla Exam Chest Exam: Not Done Breast Exam Breast Exam: Not Done Respiratory Exam Respiratory Exam: Normal Cardiovascular Exam Cardiovascular Exam: Normal Abdominal Exam Abdominal Exam: Normal (gravid uterus, ROP by mendez's) Rectal Exam Rectal Exam: Not Done Exam Exam: Normal (leaking clear fluid) Extremities Exam Extremities Exam: Normal Back/Spine/Pelvis Exam Back Exam: Not Done Pelvis Adequate: Yes Skin Exam Skin Exam: Normal Neurological Exam Neurological Exam: Normal Psychiatric Exam Psychiatric Exam: Normal Results Results Group Beta Strep: Positive Blood Type: O+ Rubella Status: Immune Varicella Immunity: Immune Lab Results: GC CT neg/ HIV neg/ Hep B&C neg/ Syphilis neg/ cfDNA low risk male/ CF neg/ SMA neg/ 1 hour 87 Risk Assessment Risk for Shoulder Dystocia Historical/Initial OB: NEGATIVE FOR: Pelvic Abnormality, Pre- BMI>30, Previous Shoulder Dystocia or Previous Macrosomia 36 Weeks: NEGATIVE FOR: Current Gestational DM, EFW>4500gms or Maternal Weight Gain>40lbs 40 Weeks: NEGATIVE FOR: EFW> 4500 gms, Maternal Weight Gain >40lb or Post Dates Increased Risk?: No Delivery Plan @ 40 wks: NVD expected Risk for Pre-Eclampsia Daily Dose ASA Indicated: No Date Initiated/Initials: not indicated Yes, if one or more: NEGATIVE FOR: Hx Pre-E/Gest HTN, Chronic HTN, Multiple Gestation, Pre-gestational DM, Renal Disease, Systemic Lupus or APA Syndrome Yes, if 2 or more: NEGATIVE FOR: Nulliparity, Age>= 35 yrs, >10yr btwn pregnancies, BMI>30, ethinicty, Mother/Sister w/ Pre-E or Previous IUGR Risk for Post- Hemorrhage Initial: NEGATIVE FOR: Multiple Gestation, Previous PPH, Known Clotting Deficiency, Grand Multiparity or Anticoagulation 36 Weeks: NEGATIVE FOR: Anemia, hgb<10, Low platelets(thrombocytopenia), Gestational HTN or Pre-E, Polyhydraminios or EFW>4500gms At Risk?: No Counseled re: Active Management: Yes Date/Initials: 11/13/23 RUTH Risks Reviewed Risks Reviewed Upon Admission: Yes (No increased risks at this time. KH)
[2023-11-13 22:03] LABS: HCT 31.9 % (36.0-46.0); HGB 10.1 g/dL (11.2-15.7); MCH 25.4 pg (27.0-33.0); MCHC 31.7 % (32.0-36.0); MCV 80 fL (80-95); MPV 10.3 fL (8.0-11.0); Platelet Count 278 10^3/uL (130-400); RBC 3.98 10^6/uL (3.93-5.22); RDW 18.6 % (11.7-14.6); RDW-SD 47.4 fL; WBC 8.47 10^3/uL (4.4-10.8)
[2023-11-13] MEDS: Penicillin G POT. 5,000,000 UNITS in Normal Saline 100 ML 200 UNITS IVPB (22:11)
[2023-11-13] MEDS: Normal Saline 10 ML VIAL IJ (22:12)
[2023-11-13 22:37] VITALS: BP 111/71; PULSE 73
[2023-11-13 22:38] VITALS: BP 111/73; PULSE 72; TEMP 36.5
[2023-11-14] VITALS (20 sets, daily range): BP systolic 112–132; BP diastolic 64–83; PULSE 72–125; RESP 16–18; TEMP 36.3–37.2; O2SAT 99–100
[2023-11-14] MEDS: Normal Saline Flush 10 ML SYR IVP ×3 (02:11→20:19)
[2023-11-14] MEDS: Penicillin G POT. 3,000,000 UNITS in Normal Saline 50 ML 100 UNITS IVPB ×3 (02:11→10:25)
--- NOTE | 2023-11-14 07:20 | W.PM.OBNL1 ---
Date of service: 11/14/23 Time of Service: 07:20 Informed Consent Informed Consent: Augmentation of Labor and Risk,Benefits,Alternatives Discussed (patient declines at this time and wants to wait 12 hours for onset of labor if she and baby are doing well despite being GBS +. She agrees to PCN prophylaxis during this period of time.) Pelvic Exam Dilation: 5 Effacement (%): 80 station: -1 Position: ROT Cervix Position: posterior Consistency: soft Contractions Monitor Mode: Palpation Contraction Frequency(min): 4-7 minutes Contraction Duration(sec): 60-110 Intensity: Moderate Fetus A Monitor: Doppler Heart Rate Baseline: 120 Amniotic Membrane Status: Ruptured Rupture Method: Spontaneous Amniotic Fluid: Clear Date of Membrane Rupture: 11/14/23 Time of Membrane Rupture: 18:00 Assessment and Plan Assessment and plan (1) Full-term premature rupture of membranes: Status: Acute Assessment and plan: 1. Beginning to have more regular contractions, prefers to avoid pitocin if possible. 2. Agreed to VE 580/-1 with forewaters palpated, agreed to rupturing forewaters and continued to assess for contractions to increase in frequency and intensity for next hour or so. 3. Planning nitrous for pain management 4. Dr. Win was notified of patient arrival, status and plan of care this morning as she called to round. RUTH (2) Group B Streptococcus carrier, +RV culture, currently : Status: Acute Assessment and plan: 1. Has now had 3 doses of PCN and will continue that plan of care until delivery occurs. RUTH Objective Abnormal lab results 11/13/23 Range/Units 21:59 Hgb 10.1 L (11.2-15.7) g/dL Hct 31.9 L (36.0-46.0) % MCH 25.4 L (27.0-33.0) pg MCHC 31.7 L (32.0-36.0) % RDW 18.6 H (11.7-14.6) % Temp Pulse Resp BP 98.6 F 84 16 132/78 11/14/23 05:21 11/14/23 07:17 11/13/23 20:49 11/14/23 07:17 Laboratory Results WBC 8.47 10^3/uL (4.4-10.8) 11/13/23 21:59 RBC 3.98 10^6/uL (3.93-5.22) 11/13/23 21:59 Hgb 10.1 g/dL (11.2-15.7) L 11/13/23 21:59 Hct 31.9 % (36.0-46.0) L 11/13/23 21:59 MCV 80 fL (80-95) 11/13/23 21:59 MCH 25.4 pg (27.0-33.0) L 11/13/23 21:59 MCHC 31.7 % (32.0-36.0) L 11/13/23 21:59 RDW 18.6 % (11.7-14.6) H 11/13/23 21:59 Plt Count 278 10^3/uL (130-400) 11/13/23 21:59 MPV 10.3 fL (8.0-11.0) 11/13/23 21:59 Membranes Rupture Cancelled 11/13/23 20:37 ABO/Rh O Positive 11/13/23 21:59 Antibody Screen NEGATIVE 11/13/23 21:59 Vital Signs Reviewed: Yes Subjective Interval history since last seen: Feeling more contractions this morning but knows it is not active labor yet. has leaked fluid in small amounts overnight. Agrees to VE as we may need to consider augmentation. KH Results Hemoglobin/Hematocrit: Hgb 10.1 g/dL (11.2-15.7) L 11/13/23 21:59 Hct 31.9 % (36.0-46.0) L 11/13/23 21:59 Abnormal Lab Findings: Abnormal Labs 11/13/23 21:59 Hgb 10.1 L Hct 31.9 L MCH 25.4 L MCHC 31.7 L RDW 18.6 H
[2023-11-14] MEDS: Oxytocin 10 UNITS/ML VIAL IM (11:54)
[2023-11-14] MEDS: Oxytocin/Normal Saline 30 UNIT/500 ML BAG 95 UNITS IV (12:05)
--- NOTE | 2023-11-14 12:47 | OBVDS_ITS ---
Date of service: 11/14/23 Time of Service: 12:20 OB Labor/ Delivery Information Baby A Delivery Delivery Method: Spontaneaous Presentation: Cephalic Cephalic Position: Vertex Vertex Position: Right Occipital Anterior Breech Position: N/A Cord Description-Baby A: 3 Vessels and Nuchal Cord (loose, reduced overhead) Amniotic Fluid: Clear Estimated Blood Loss: 200 ml Delivery Outcome: Liveborn Transferred: Remains with Mother Note: With spontaneous onset of contractions, pt labored primarily standing, holding onto the edge of the sink by the BR door and doing partial squats, using nitrous well, FOB at her side providing excellent support. Spontaneous urges to bear down became apparent, 2nd stage huddle completed, FHT per doptone remained 130- 140 per intermittent auscultation guidelines, 4th PCN dose for GBS prophylaxis infused, no increased risks for PPH or SD identified. Pt spontaneously moved to hands and knees on the floor, bearing down with strong efforts though anterior lip was palpable across head @ +1/+2 station. Gentle attempt to manually reduce lip but pt found this procedure too painful, so she was encouraged to stand and ambulate the 4 steps toward the bed to which she agreed. FOB assisted pt to standing and two steps toward the bed head appeared at perineum and pt sat down on the floor, leaning back into FOB's lap. Clean field of absorbent pads established and of vigorous male infant over intact perineum, loose nuchal cord reduced overhead and shoulders delivered easily, infant to mother's arms immediately, 10 units of pitocin given IM, cord ceased pulsating and was clamped then cut by FOB, cord blood collected, [place] placenta intact with 3VC. Pt assisted into bed, perineum, vulva and vagina inspected and found intact, superficial laceration at introitus noted, not bleeding, not repaired. Fundus firm below umbilicus, minimal rubra, strong family bonding observed. Apgars 9/9, pt's informed choice is to formula feed, weight 3470 gms. Providers Nurse Insulator Technician: Kim Connors Nurse: Peace Hagen Nurse: Castillo Truong Labor/Delivery Information Number of Babies in Womb: 1 Steroids Given: None Reason Steroids Not Administered: N/A Group Beta Strep: Positive Antibiotics Administered: Yes Number of Doses of Antibiotics: 4 Rubella Status: Immune Blood Type: O+ Varicella Immunity: Immune Maternal Complications: None Shoulder Dystocia: No Stages of Labor Onset of Labor Date: 11/14/23 Onset of Labor Time: 07:00 ROM Baby A: 11/13/23 ROM Baby A: 18:00 ROM Total Time- Baby A: [id number] Infant Delivery Date-Baby A: 11/14/23 Infant Delivery Time-Baby A: 11:52 Placenta Delivery Date-Baby A: 11/14/23 Placenta Delivery Time-Baby A: 12:00 Labor-Stage 3 Duration: 8 minutes Total Length of Labor-Baby A: 4 hours and 52 minutes Placenta Cultured: No Placenta Status: Delivered Baby A Gender: Male Gestational Status: Term (39-41.6 wks) Gestational Age in Weeks/Days: 39 Weeks and 1 Days weight: 7 lb 10.401 oz Weight Comment: 3470 gms Score-1 Minute Interval(Baby A) Heart Rate-1 minute: 100 BPM or Greater Respiratory Effort- 1 minute: Spontaneous/Strong Cry Muscle Tone-1 minute: Active Movement Reflex Response-1 minute: Prompt Response Color-1 minute: Bluish Hands or Feet Total Score-1 minute: 9 Score-5 Minute Interval(Baby A) Heart Rate- 5 minute: 100 BPM or Greater Respiratory Effort-5 minute: Spontaneous/Strong Cry Muscle Tone-5 minute: Active Movement Reflex Response-5 minute: Prompt Response Color-5 minute: Bluish Hands or Feet Total Score- 5 minute: 9
[2023-11-15 03:00] VITALS: BP 111/64; PULSE 64; TEMP 36.8
--- NOTE | 2023-11-15 06:38 | OBPPV_ITS ---
Date of service: 11/15/23 Time of Service: 06:38 Assessment and Plan Assessment and plan (1) Term delivered: Status: Acute Assessment and plan: A: PPD#1, nml recovery Pleased with experience P: Pt desires discharge to home today Planning OCP's for BCM Written instructions reviewed and given to pt F/up at 2 & 6 wks Subjective Subjective Patient comments: No complaints, Pain well controlled, Tolerating diet and Flatus present Patient's Mood: happy baby status: Doing well, Bottle feeding well, Rooming in and Strong Bonding Observed [place] feeding status: Exclusively formula feeding Exam Physical Exam Vital signs: Temp Pulse Resp BP Pulse Ox 98.3 F 64 16 111/64 99 11/15/23 03:00 11/15/23 03:00 11/14/23 19:00 11/15/23 03:00 11/14/23 15:30 Vital Signs Reviewed: Yes Constitutional Constitutional: no acute distress, average body habitus and cooperative HEENT Exam HEENT Exam: Normal Neck Exam Neck Exam: Normal Breast Exam Bilateral: Breast Exam: Normal and Soft Nipple Exam: Normal and Uninjured Respiratory Exam Respiratory Exam: Normal Cardiovascular Exam Cardiovascular Exam: Normal Abdominal Exam Abdomen: Other (soft, nontender) Fundal Exam Fundus: Below Umbilicus and Firm Rectal Exam Rectal Exam: Normal Exam Perineum: Intact Extremities Exam Extremity Exam: Normal Back/Spine/Pelvis Exam Back Exam: Normal Skin Exam Skin Exam: Normal Neurological Exam Neurological Exam: Normal Psychiatric Exam Psychiatric Exam: Normal
[2023-11-15 07:00] VITALS: BP 114/81; PULSE 87; RESP 16; TEMP 36.6; O2SAT 98
--- NOTE | 2023-11-15 07:55 | DSE_ITS ---
Date of service: 11/15/23 Time of Service: 07:55 DS: Diagnosis Discharge Diagnosis (1) Term delivered: Status: Acute Discharge Plan Disposition Patient Disposition: Home Condition: Good Discharge Details Reason For Visit: PROM at Term Admit Date/Time: 11/13/23 21:37 Admit Provider: Clare Marvin Attending Provider: Clare Marvin Primary Care Provider: Unknown,Unknown Hospital Course Hospital Course: Spontaneous onset of labor, , nml course Home Meds and New Rx's Prescriptions: No Action acetaminophen [Tylenol] 325 mg capsule 325 mg PO ONCE PRN One Daily [id number] mg-mcg-mg combo pack 1 pkg PO DAILY ferrous sulfate 325 mg (65 mg iron) tablet,delayed release (DR/EC) 325 mg PO DAILY Qty: 60 4RF Discharge Instructions Additional Instructions: Please keep your 2 and 6 week appointments with your fitness assistant. call for any and all concerns Stand Alone Forms: BC Post Vaginal Deliver Activity:: Activity as Tolerated Equipment/Supplies:: No Equipment Needed Diet:: As Tolerated Discharge Orders Discharge Orders: Discharge Order (Routine); Ordered 11/15/23 Ordered By: Kim Connors OB:DS Summary Summary Vaginal Delivery Method: Spontaneaous Episiotomy Description: None Laceration Description: None Laceration Extension: N/A Contraception Discussed Contraception Discussed: Yes Contraceptive Plan: Control Pill/Patch, Infant Gender-Baby A: Male weight: 7 lb 10.401 oz Status at Discharge Functional status at discharge: independent ambulation Overall status at discharge: patient is progressing back to baseline Mental Status: mental status grossly normal Speech and Movement: speech and movement normal Mood: congruent mood Affect: normal affect Quality:SDOH Health Related Social Needs: No Data to Display Exam Physical Exam Vital signs: Temp Pulse Resp BP Pulse Ox 97.9 F 87 16 114/81 98 11/15/23 07:00 11/15/23 07:00 11/15/23 07:00 11/15/23 07:00 11/15/23 07:00 Constitutional Constitutional: no acute distress, average body habitus and cooperative HEENT Exam HEENT Exam: Normal Neck Exam Neck Exam: Normal Breast Exam Bilateral: Breast Exam: Normal and Soft Respiratory Exam Respiratory Exam: Normal Cardiovascular Exam Cardiovascular Exam: Normal Abdominal Exam Abdomen: Other (soft, nontender) Fundal Exam Fundus: Below Umbilicus and Firm Rectal Exam Rectal Exam: Normal Exam Perineum: Intact Extremities Exam Extremity Exam: Normal Back/Spine/Pelvis Exam Back Exam: Normal Skin Exam Skin Exam: Normal Neurological Exam Neurological Exam: Normal Psychiatric Exam Psychiatric Exam: Normal PFSH All Active Problems (Updated 11/15/23 @ 06:38 by Kim Connors) Term delivered (Acute) Anemia (Chronic) Migraine (Chronic) Medical History (Updated 11/15/23 @ 06:38 by Kim Connors) Anemia affecting Group B Streptococcus carrier, +RV culture, currently Full-term premature rupture of membranes Delayed menses Surgical History [place] teeth extracted Family History Mother Essential hypertension Hyperlipidemia Father Essential hypertension Other Personal history of malignant neoplasm maternal- thyroid, breast,skin Hyperlipidemia MGM, MGF, PGF, PGM Myocardial infarction MGF, MGM, paternal side Stroke MGF, PGF Diabetes Maternal Great Grandparents, Paternal Grandmother Type II Breast cancer Maternal Great Aunt over age 50 Cancer Maternal Grandfather, FOB's mom Social History Smoking/Tobacco Use Status: Never Smoking risk assessment performed?: Yes Alcohol Intake: never Drug use: Never Household members: significant other, children and other Details: [facility] Housing: house Number of Children: 1 current occupation: [employer]. Plans to work part-time from home Do you feel safe at home: Yes Do you feel safe in your relationship?: Yes Female Reproductive History Menstrual Age of Menarche: 12 control method: pills History History 3 Para 1 Hx # Term Pregnancies 1 Multiple births 0 Hx # Pregnancies 0 Ectopic pregnancies 0 AB induced 0 Hx Number of Living Children 1 AB spontaneous 1 Past Pregnancies Del. Date GA/Weeks # Preg Succ Route Wgt Sex Labor Lgth Anesth esia Location [facility] 06/03/21 6 No No 09/11/22 40 No Yes vaginal 7 lb 9 oz Female Guillaume faust CNM Delivery Date: 09/11/22 Last Updated by: MADAN Luna; DS: Data Vitals/I&O Vitals and I&O: Vital Signs Temperature 97.9 F 11/15/23 07:00 Temperature 99 F 11/13/23 21:41 Temperature Source Oral 11/15/23 07:00 Pulse 87 11/15/23 07:00 Pulse 79 11/13/23 21:41 Pulse Rhythm Regular 11/15/23 07:00 Respiratory Rate 16 11/15/23 07:00 Blood Pressure 114/81 11/15/23 07:00 Blood Pressure 112/66 11/13/23 21:41 Blood Pressure Mean 92 11/15/23 07:00 Pulse Oximetry 98 11/15/23 07:00 Oxygen Delivery Method Room Air 11/13/23 20:49 Oxygen Flow Rate 0 11/13/23 20:49 Comment Pt laboring in bathroom 11/14/23 10:00 Intake & Output 11/14/23 11/14/23 11/15/23 11:59 23:59 11:59 Intake Total 100 / 418.083 318.083 / 418.083 Output Total 1899 Balance 100 / -1481.917 -1581.917 / -1481.917 Intake: IV 100 / 418.083 318.083 / 418.083 Output: Urine 1899 Other: Urine Color Pale Yellow Yellow
--- NOTE | 2023-11-15 14:47 | DSE_ITS ---
Date of service: 11/15/23 Time of Service: 14:48 DS: Diagnosis Discharge Diagnosis (1) Term delivered: Status: Acute Asessment and Plan: Caring for baby independently. Pain is managed well with oral analgesics. Voiding without difficulty. Bottlefeeding. A - stable mother and baby , Post day 1 P - Discharge to home today. Routine post instructions. [facility] Discharge Plan Disposition Patient Disposition: Home Condition: Good Discharge Details Reason For Visit: PROM at Term Admit Date/Time: 11/13/23 21:37 Admit Provider: Clare Marvin Attending Provider: Clare Marvin Primary Care Provider: Unknown,Unknown Hospital Course Hospital Course: Spontaneous onset of labor, , nml course Home Meds and New Rx's Prescriptions: No Action acetaminophen [Tylenol] 325 mg capsule 325 mg PO ONCE PRN One Daily [phone] mg-mcg-mg combo pack 1 pkg PO DAILY ferrous sulfate 325 mg (65 mg iron) tablet,delayed release (DR/EC) 325 mg PO DAILY Qty: 60 4RF Discharge Instructions Additional Instructions: Please keep your 2 and 6 week appointments with your cloth weigher. call for any and all concerns Stand Alone Forms: BC Post Vaginal Deliver Activity:: Activity as Tolerated Equipment/Supplies:: No Equipment Needed Diet:: As Tolerated Discharge Orders Discharge Orders: Discharge Order (Routine); Ordered 11/15/23 Ordered By: Kim Connors Discharge Data Discharge Date/Time-TO BE ENTERED AT DEPARTURE: 11/15/23 13:05 OB:DS Summary Summary Vaginal Delivery Method: Spontaneaous Episiotomy Description: None Laceration Description: None Laceration Extension: N/A Contraception Discussed Contraception Discussed: Yes, Infant Gender-Baby A: Male weight: 7 lb 10.401 oz Status at Discharge Functional status at discharge: independent ambulation Overall status at discharge: patient is back to baseline Mental Status: mental status grossly normal Speech and Movement: speech and movement normal Mood: congruent mood Affect: normal affect Quality:SDOH Health Related Social Needs: No Data to Display Exam Physical Exam Vital signs: Temp Pulse Resp BP Pulse Ox 97.9 F 87 16 114/81 98 11/15/23 07:00 11/15/23 07:00 11/15/23 07:00 11/15/23 07:00 11/15/23 07:00 Vital Signs Reviewed: Yes Constitutional Constitutional: no acute distress HEENT Exam HEENT Exam: Normal Respiratory Exam Respiratory Exam: Normal Cardiovascular Exam Cardiovascular Exam: Normal Fundal Exam Fundus: Below Umbilicus and Firm Rectal Exam Rectal Exam: Normal Exam Comments: intact perineum. Denies discomfort Extremities Exam Extremity Exam: Normal Skin Exam Skin Exam: Normal Psychiatric Exam Psychiatric Exam: Normal PFSH All Active Problems (Updated 11/15/23 @ 06:38 by Kim Connors) Term delivered (Acute) Anemia (Chronic) Migraine (Chronic) Medical History (Updated 11/15/23 @ 06:38 by Kim Connors) Anemia affecting Group B Streptococcus carrier, +RV culture, currently Full-term premature rupture of membranes Delayed menses Surgical History [place] teeth extracted Family History Mother Essential hypertension Hyperlipidemia Father Essential hypertension Other Personal history of malignant neoplasm maternal- thyroid, breast,skin Hyperlipidemia MGM, MGF, PGF, PGM Myocardial infarction MGF, MGM, paternal side Stroke MGF, PGF Diabetes Maternal Great Grandparents, Paternal Grandmother Type II Breast cancer Maternal Great Aunt over age 50 Cancer Maternal Grandfather, FOB's mom Social History Smoking/Tobacco Use Status: Never Smoking risk assessment performed?: Yes Alcohol Intake: never Drug use: Never Household members: significant other, children and other Details: [facility] Housing: house Number of Children: 1 current occupation: [employer]. Plans to work part-time from home Do you feel safe at home: Yes Do you feel safe in your relationship?: Yes Female Reproductive History Menstrual Age of Menarche: 12 control method: pills History History 3 Para 1 Hx # Term Pregnancies 1 Multiple births 0 Hx # Pregnancies 0 Ectopic pregnancies 0 AB induced 0 Hx Number of Living Children 1 AB spontaneous 1 Past Pregnancies Del. Date GA/Weeks # Preg Succ Route Wgt Sex Labor Lgth Anesth esia Location Prov Complic 06/03/21 6 No No 09/11/22 40 No Yes vaginal 7 lb 9 oz Female Guillaume faust,CARRIE Delivery Date: 09/11/22 Last Updated by: MADAN Luna; DS: Data Vitals/I&O Vitals and I&O: Vital Signs Temperature 97.9 F 11/15/23 07:00 Temperature 99 F 11/13/23 21:41 Temperature Source Oral 11/15/23 07:00 Pulse 87 11/15/23 07:00 Pulse 79 11/13/23 21:41 Pulse Rhythm Regular 11/15/23 07:00 Respiratory Rate 16 11/15/23 07:00 Blood Pressure 114/81 11/15/23 07:00 Blood Pressure 112/66 11/13/23 21:41 Blood Pressure Mean 92 11/15/23 07:00 Pulse Oximetry 98 11/15/23 07:00 Oxygen Delivery Method Room Air 11/13/23 20:49 Oxygen Flow Rate 0 11/13/23 20:49 Comment Pt laboring in bathroom 11/14/23 10:00 Intake & Output 11/14/23 11/15/23 11/15/23 23:59 11:59 23:59 Intake Total 318.083 / 418.083 Output Total 1899 Balance -1581.917 / -1481.917 Intake: IV 318.083 / 418.083 Output: Urine 1899 Other: Urine Color Yellow Yellow Voiding Methods Toilet
--- NOTE | 2023-11-18 09:26 | W.OBNST ---
Date of service: 11/13/23 Time of Service: 21:20 NST Evaluation Reason for NST Reasons for Nonstress Test: OTHER, SEE COMMENT Reason for NST Other: SROM Gestational Age Gestational Age in Weeks and Days: 39 Weeks and 0Days Test and Monitor Explained Test/Monitor Explained: Test Explained, Monitor Explained and Patient Verbalized Understanding Vital Signs Blood Pressure: 112/66 Pulse: 79 Temperature: 99 F Urine Results Urine Protein: Positive Urine Ketones: Negative Urine Glucose: Negative Urine Blood: Positive NST Information Date on Monitor: 11/13/23 Time on Monitor: 20:45 Date off Monitor: 11/13/23 Time off Monitor: 21:19 Total Time on Monitor: 34 NST Interventions: None Contraction Frequency: 3-7 NST Evaluation Patient States Movement: Present FHR Baseline: 135 Variability: Moderate 6-25 bpm Accelerations: 15x15 Decelerations: Early NST Results: Reactive Note Ultrasound Done: N/A. NST Note Note: reactive NST being admitted [facility] NST Reviewed and Verified by: Clare Marvin
[2023-11-18 09:27] VITALS: BP 112/66; PULSE 79; TEMP 37.2
== END 2023-11-15 13:05 | disposition home or self-care (01) | DRG 807 ==
LOC: BCD 21:47 → OBS 21:47
PROVIDERS: Admitting Provider Advanced Practice Midwife; Visit Provider Advanced Practice Midwife
DX: O42.92 Full-term premature rupture of membranes, unspecified as to length of time between rupture and onset of labor (principal); Z37.0 Single live birth; O99.824 Streptococcus B carrier state complicating childbirth; O71.89 Other specified obstetric trauma; Z3A.37 37 weeks gestation of pregnancy; O99.02 Anemia complicating childbirth; D64.9 Anemia, unspecified
CPT/HCPCS: 36415; 84112; 85027; 86850; 86900; 86901; J2540; J2590

== ENCOUNTER 2024-06-26 12:11 | Outpatient (REF) | payer BC, SELFPAY ==
--- NOTE | 2024-06-26 10:30 | PAPFT_PTH ---
PATIENT: Cathleen Gray LOC: [facility] U#:[id number] AGE/SX: 23/F ROOM: RE06/26/[address]: Luz Badillo NP : 2000 BED: DIS: 06/26/2024 SPEC #: [id number] RECD: 06/26/24 13:00 STATUS: ROSALINDA SON #: [id number] PEYMAN: 06/26/24 10:[address]: Luz Badillo NP DEPT: [facility] Cytology RECD BY: Juhi Bhatia ENTERED: 06/26/24 13:01 SP TYPE: PAPFT ASTRID DR: Unknown,Unknown Tissues: 1 - CX/ENDOCX FOR PAP SMEARS Procedures: PAP THIN PREP/[facility] Screening Comments: [id number]
== END 2024-06-26 12:12 | disposition home or self-care (01) ==
LOC: LBN 12:11
PROVIDERS: Visit Provider Nurse Practitioner Women's Health
DX: Z30.9 Encounter for contraceptive management, unspecified (principal); Z01.419 Encounter for gynecological examination (general) (routine) without abnormal findings; Z30.41 Encounter for surveillance of contraceptive pills; Z12.4 Encounter for screening for malignant neoplasm of cervix
CPT/HCPCS: 88142

== ENCOUNTER 2024-09-10 13:56 | Outpatient (CLI) | payer BC, SELFPAY ==
[2024-09-10 14:01] LABS: Panorama Kit Sent via Fed Ex
[2024-09-10 14:11] LABS: Abs Immature Grans 0.02 10^3/uL (0.0-0.06); Absolute Basophil Count 0.03 10^3/uL (0.0-0.2); Absolute Eosinophil Count 0.04 10^3/uL (0.0-0.7); Absolute Lymphocyte Count 1.72 10^3/uL (1.2-3.4); Absolute Monocyte Count 0.34 10^3/uL (0.1-0.8); Absolute Neutrophil Count 4.42 10^3/uL (1.2-6.7); Basophils % 0.5 %; Eosinophils % 0.6 %; HCT 39.4 % (36.0-46.0); HGB 13.1 g/dL (11.2-15.7); Immature Grans % 0.3 %; Lymphocytes % 26.2 %; MCH 29.4 pg (27.0-33.0); MCHC 33.2 % (32.0-36.0); MCV 88 fL (80-95); MPV 9.6 fL (8.0-11.0); Monocytes % 5.2 %; Neutrophils % 67.2 %; Platelet Count 241 10^3/uL (130-400); RBC 4.46 10^6/uL (3.93-5.22); RDW 13.2 % (11.7-14.6); WBC 6.57 10^3/uL (4.4-10.8)
[2024-09-11 09:03] LABS: Hepatitis B Surface Ag Negative (Negative)
[2024-09-11 09:41] LABS: Hepatitis C Ab w Rflx HCV PCR Negative (Negative)
[2024-09-11 09:48] LABS: HIV-1/2 Ag & Ab Screen Negative (Negative)
[2024-09-12 11:27] LABS: Rubella IgG Ab (UVM) Positive (See Note); Varicella IgG Antibody Positive (See Note)
[2024-09-12 20:23] LABS: Syphilis IgG w/Reflex Nonreactive (Nonreactive)
== END 2024-09-10 13:57 | disposition home or self-care (01) ==
LOC: LBO 13:57
PROVIDERS: Visit Provider Advanced Practice Midwife
DX: Z34.91 Encounter for supervision of normal pregnancy, unspecified, first trimester
CPT/HCPCS: 36415; 86787; 86803; 86850; 86900; 86901; 87340; 87389; 85025; 86762; 86780

== ENCOUNTER 2024-09-10 13:57 | Outpatient (REF) | payer BC, SELFPAY ==
[2024-09-11 12:08] LABS: Chlamydia Result Negative (Negative); GC Result Negative (Negative)
== END 2024-09-10 13:58 | disposition home or self-care (01) ==
LOC: LBN 13:57
PROVIDERS: Visit Provider Advanced Practice Midwife
DX: Z34.91 Encounter for supervision of normal pregnancy, unspecified, first trimester (principal)
CPT/HCPCS: 87491; 87591; 87086

== ENCOUNTER 2024-12-25 03:10 | Outpatient (CLI) | payer BC, SELFPAY ==
[2024-12-25 11:46] LABS: HCT 32.4 % (36.0-46.0); HGB 10.7 g/dL (11.2-15.7); MCH 29.2 pg (27.0-33.0); MCHC 33.0 % (32.0-36.0); MCV 88 fL (80-95); MPV 9.6 fL (8.0-11.0); Platelet Count 277 10^3/uL (130-400); RBC 3.67 10^6/uL (3.93-5.22); RDW 12.4 % (11.7-14.6); RDW-SD 40.2 fL; WBC 7.01 10^3/uL (4.4-10.8)
[2024-12-25 12:06] LABS: Glucose,1 Hr (Glucola) 98 mg/dL (80-140)
== END 2024-12-25 03:11 | disposition home or self-care (01) ==
LOC: LBO 03:10
PROVIDERS: Visit Provider Advanced Practice Midwife
DX: Z34.92 Encounter for supervision of normal pregnancy, unspecified, second trimester (principal)
CPT/HCPCS: 36415; 82950; 85027

== ENCOUNTER 2025-01-21 01:13 | Outpatient (CLI) | payer BC, SELFPAY ==
--- NOTE | 2025-01-21 07:30 | DI.US_ITS ---
Exam(s) US OB ANGELINA WEIGHT EXAM: US OB ANGELINA WEIGHT CLINICAL HISTORY: , family h/o macrocephaly,. TECHNIQUE: Transabdominal obstetrical ultrasound performed. COMPARISON: US US OB 2-3 TRIMESTER from 07/08/2023 FINDINGS: Number of fetuses: 1 position: CEPHALIC Placental location: There is a grade 2 fundal placenta. No evidence of previa. BIOMETRIC DATA: BPD: 8.11cm, 32weeks 4days HC: 31.07cm, 34weeks 5days AC: 28.54cm, 32weeks 4days FL: 6.2cm, 32weeks 1day EFW: 2,020.76g, 4lb 7.94oz, 51.4% Composite Age: 33weeks MARIYA: 03/11/2025 Heart Rate: 145bpm Amniotic fluid index: 13.37cm. The largest pocket measures 5.1 cm. IMPRESSION: 1. Single live intrauterine gestation as above. 2. Estimated weight is 2021gms. This is the 51st percentile. 3. Amniotic fluid index is 13.4 cm. The largest pocket measures 5.1 cm. DATA REPOSITORY:
== END 2025-01-21 01:33 ==
LOC: DI 01:13
PROVIDERS: Visit Provider Advanced Practice Midwife
DX: Z34.83 Encounter for supervision of other normal pregnancy, third trimester (principal); Z3A.34 34 weeks gestation of pregnancy
CPT/HCPCS: 76816

== ENCOUNTER 2025-02-20 13:02 | Outpatient (CLI) | payer BC, SELFPAY ==
[2025-02-20 13:01] LABS: HCT 29.6 % (36.0-46.0); HGB 9.5 g/dL (11.2-15.7); MCH 26.4 pg (27.0-33.0); MCHC 32.1 % (32.0-36.0); MCV 82 fL (80-95); MPV 10.0 fL (8.0-11.0); Platelet Count 223 10^3/uL (130-400); RBC 3.60 10^6/uL (3.93-5.22); RDW 14.1 % (11.7-14.6); RDW-SD 41.7 fL; WBC 6.25 10^3/uL (4.4-10.8)
== END 2025-02-20 13:03 | disposition home or self-care (01) ==
LOC: LBO 13:03
PROVIDERS: Visit Provider Advanced Practice Midwife
DX: Z34.93 Encounter for supervision of normal pregnancy, unspecified, third trimester (principal)
CPT/HCPCS: 36415; 85027

== ENCOUNTER 2025-02-20 14:24 | Outpatient (REF) | payer BC, SELFPAY | END 2025-02-20 14:25 | disposition home or self-care (01) | LOC: LBN 14:24 | PROVIDERS: Visit Provider Advanced Practice Midwife | DX: Z34.93 Encounter for supervision of normal pregnancy, unspecified, third trimester | CPT/HCPCS: 87081 ==

== ENCOUNTER 2025-02-20 14:49 | Outpatient (CLI) | payer BC, SELFPAY ==
--- NOTE | 2025-02-20 06:00 | DI.US_ITS ---
Exam(s) US OB ANGELINA WEIGHT EXAM: US OB ANGELINA WEIGHT CLINICAL HISTORY: EFW and growth Z3A.11 11 WEEKS GESTATION Z82.79 FAM HX MACROCEPHALY. TECHNIQUE: Transabdominal obstetrical ultrasound performed. COMPARISON: US US OB ANGELINA WEIGHT from 01/21/2025 FINDINGS: Number of fetuses: 1 position: CEPHALIC Placental location: There is a grade 2 fundal placenta. No evidence of previa. BIOMETRIC DATA: BPD: 8.97cm, 36weeks 2days HC: 32.14cm, 36weeks 2days AC: 31.95cm, 35weeks 6days FL: 7.04cm, 36weeks 1day EFW: 2,828.36g, 6lb 3.78oz, 38.6% Composite Age: 36weeks 1day MARIYA: 03/19/2025 Heart Rate: 161bpm Amniotic fluid index: 11.75cm. The largest pocket measures 6.5 cm. IMPRESSION: 1. Single live intrauterine gestation as above. 2. Estimated weight is 2828gms. This is the 39th percentile. 3. Amniotic fluid index is 11.8 cm. The largest pocket measures 6.5 cm. DATA REPOSITORY:
== END 2025-02-20 15:09 ==
LOC: DI 14:49
PROVIDERS: Visit Provider Advanced Practice Midwife
DX: Z3A.11 11 weeks gestation of pregnancy (principal); Z82.79 Family history of other congenital malformations, deformations and chromosomal abnormalities; Z34.83 Encounter for supervision of other normal pregnancy, third trimester
CPT/HCPCS: 76816

== ENCOUNTER 2025-03-15 00:19 | Outpatient (RCR) | payer BC, SELFPAY ==
[2025-03-01 12:10] LABS: HGB 9.8 g/dL (11.2-15.7)
[2025-03-01] MEDS: Normal Saline Flush 10 ML SYR IVP (13:08)
[2025-03-01] MEDS: IRON SUCROSE COMPLEX 200 MG in Normal Saline 100 ML 440 MG IVPB (13:08)
[2025-03-08 13:23] LABS: HGB 10.0 g/dL (11.2-15.7)
[2025-03-08] MEDS: IRON SUCROSE COMPLEX 200 MG in Normal Saline 100 ML 440 MG IVPB (13:59)
[2025-03-08] MEDS: Normal Saline Flush 10 ML SYR IVP (14:00)
[2025-03-15 09:53] LABS: HGB 10.2 g/dL (11.2-15.7)
[2025-03-15] MEDS: IRON SUCROSE COMPLEX 200 MG in Normal Saline 100 ML 440 MG IVPB (10:22)
[2025-03-15] MEDS: Normal Saline Flush 10 ML SYR IVP (10:22)
== END 2025-03-19 23:59 | disposition home or self-care (01) ==
LOC: INF 00:19
PROVIDERS: Visit Provider Advanced Practice Midwife
DX: O99.013 Anemia complicating pregnancy, third trimester (principal)
CPT/HCPCS: 36415; 96365; 85018; J1756

== ENCOUNTER 2025-03-22 09:28 | Outpatient (CLI) | payer BC, SELFPAY ==
--- NOTE | 2025-03-22 | DI.US_ITS ---
Exam(s) US OB ANGELINA WEIGHT EXAM: US OB ANGELINA WEIGHT CLINICAL HISTORY: 41 wks. TECHNIQUE: Transabdominal obstetrical ultrasound was performed. COMPARISON: US US OB ANGELINA WEIGHT from 02/20/2025 FINDINGS: There is a single viable intrauterine gestation with cardiac activity identified-142 bpm The fetus is presently in cephalic position with spine pointing posteriorly. Amniotic fluid: There is a lower normal amount of amniotic fluid with an ANGELINA of 10.1cm. Placental location: The placenta is fundal anterior grade 2,with no evidence of placenta previa. Dating parameters place this at approximately 40 weeks and 2 days gestational age, implying MARIYA of past due. BPD measures 39 weeks and 6 days HC measures 41 weeks and 1 day AC measures 41 weeks and 4 days FL measures 38 weeks and 2 days Estimated weight is 4150 gm-9 pounds, 2 ounces Fetus is at the 79th percentile on the Hadlock scale. IMPRESSION:: Viable late 3rd trimester gestation, as described above. Forty weeks and 2 days gestational age by ultrasound dating. DATA REPOSITORY:
[2025-03-22 11:11] VITALS: BP 111/65; PULSE 82; TEMP 36.8
[2025-03-22 11:12] VITALS: BP 111/65; PULSE 82
--- NOTE | 2025-03-22 15:22 | W.OBNST ---
Date of service: 03/22/25 Time of Service: 15:22 NST Evaluation Reason for NST Reasons for Nonstress Test: POSTDATES Gestational Age Gestational Age in Weeks and Days: 40 Weeks and 6Days Test and Monitor Explained Test/Monitor Explained: Test Explained, Monitor Explained and Patient Verbalized Understanding Vital Signs Blood Pressure: 111/65 Pulse: 82 Temperature: 98.2 F Weight: 160 lb NST Information Date on Monitor: 03/22/25 Time on Monitor: 11:04 Date off Monitor: 03/22/25 Time off Monitor: 12:02 Total Time on Monitor: 58 NST Interventions: PO Hydration NST Evaluation Patient States Movement: Present FHR Baseline: 135 Variability: Moderate 6-25 bpm Accelerations: 15x15 Decelerations: None NST Results: Reactive Note Ultrasound Done: N/A. NST Note Note: EFW and ANGELINA done in the DI, ANGELINA=10, EFW in 79th percentile, cephalic presentation LOP Pt declines IOL until 10 days past MARIYA, booked for 03/26/25 NST Reviewed and Verified by: Kim Connors
[2025-03-22 15:24] VITALS: BP 111/65; PULSE 82; TEMP 36.8
== END 2025-03-22 14:00 ==
LOC: BCD 09:28 → OBS 10:59
PROVIDERS: Visit Provider Advanced Practice Midwife
DX: O48.0 Post-term pregnancy (principal); Z3A.40 40 weeks gestation of pregnancy
CPT/HCPCS: 76816; 59025

== ENCOUNTER 2025-03-26 09:16 | Inpatient (IN) | payer BC, SELFPAY ==
[2025-03-26] VITALS (20 sets, daily range): BP systolic 108–169; BP diastolic 66–118; PULSE 50–100; RESP 16; TEMP 36.5–37.1; O2SAT 97
[2025-03-26 09:37] LABS: Abs Immature Grans 0.01 10^3/uL (0.0-0.06); HCT 33.3 % (36.0-46.0); HGB 10.7 g/dL (11.2-15.7); Immature Grans % 0.2 %; MCH 27.4 pg (27.0-33.0); MCHC 32.1 % (32.0-36.0); MCV 85 fL (80-95); MPV 10.4 fL (8.0-11.0); Platelet Count 165 10^3/uL (130-400); RBC 3.90 10^6/uL (3.93-5.22); RDW 19.3 % (11.7-14.6); RDW-SD 59.2 fL; WBC 6.00 10^3/uL (4.4-10.8)
--- NOTE | 2025-03-26 10:30 | HPE_ITS ---
Date of service: 03/26/25 Time of Service: 09:30 Assessment and Plan Assessment and plan (1) 41 weeks gestation of : Status: Acute (2) Encounter for induction of labor: Status: Acute Assessment and plan: A: 24 yo @ 41+3 wks, IOL for postdates 41 wk u/s EFW 4150 gms and ANGELINA 10; GBS negative, Rh+ Increased risk SD & PPH d/t EFW and IOL process to be addressed at delivery Pt did not tolerate SVE well, estimated martinez score=4 Category 1 tracing on admission, Hgb 10.7 P: Admit, CBC, T&S, pt consents to misprostel cervical ripening Dr. Billings consulting today Anticipate OB-HPI Labor/Delivery History of Present Illness Reason for Visit: Induction for Postdates Chief Complaint: Scheduled Induction of Labor Indication for Induction: Post Date. MARIYA Calculator Estimated Delivery Date Method Current WG Current Estimate 03/16/25 Conception 41w 3d Other Estimates 03/13/25 LMP (Uncertain) 41w 6d 03/20/25 Ultrasound #1 40w 6d History of Present Expected Delivery Route/Plan - CNM FOB/partner - Guillermo Rivero (3rd child together, has an 8 yo daughter) BG Plans unmedicated , only nitrous, Will formula feed GBS neg Specific Issues/Plan 1. Close pregnancies, conception at 7 months 2. Андрей with brain cyst removal as , Neurologist recommended level 2 US during 2a. 20wk US [facility] consult was nml, recommended third trimester growth scan - EFW 51%ile and ANGELINA 13, HC measures 34 wks at 32 weeks, BPD at 32 weeks. 2b. 9/3-EFW 39%ile and ANGELINA 11.8 3. cfDNA - low risk , CF and SMA previously neg, declines AFP 4. Coccygeal pain after a fall. 5. 5P's negative 6. Anemia at 28 weeks: Hgb 10.7. Iron Rich foods/Fe Rx'ed. 34-week Hgb Recheck- 9.5, iron infusions weekly started. Assessment: History Reviewed & Current Informed Consent Informed Consent: Induction of Labor and Risk,Benefits,Alternatives Discussed Review of Systems All systems reviewed & are unremarkable except as noted in HPI and below PFSH All Active Problems (Updated 03/26/25 @ 10:39 by Kim Connors) Encounter for induction of labor (Acute) 41 weeks gestation of (Acute) Family history of macrocephaly (Acute) pt's son had choroidal cyst fenestrated 07/2024 in [place] (Acute) Migraine (Chronic) dx at age 15, resolved with first , now reoccurring in current , no medications currently Medical History (Updated 03/26/25 @ 10:39 by Kim Connors) Oral contraceptive use Anemia Surgical History [place] teeth extracted Family History Mother Essential hypertension Hyperlipidemia Father Essential hypertension Other Personal history of malignant neoplasm maternal- thyroid, breast,skin Hyperlipidemia MGM, MGF, PGF, PGM Myocardial infarction MGF, MGM, paternal side Stroke MGF, PGF Diabetes Maternal Great Grandparents, Paternal Grandmother Type II Breast cancer Maternal Great Aunt over age 50 Cancer Maternal Grandfather, FOB's mom Social History (Updated 08/27/24 @ 09:55 by Roxanna Yang CNM) Smoking/Tobacco Use Status: Never Smoking risk assessment performed?: Yes Alcohol Intake: never Drug use: Never Household members: significant other, children and other Details: RIA- Sophia Li (7y.o) Housing: house Number of Children: 3 current occupation: [employer]. Plans to work part-time from home Pets and animals: Yes Pets and animals: cat(s) and dog(s) Sexually active: Yes Do you think of yourself as: straight/heterosexual Current gender identity: female What is your relationship status?: living with partner How often do you talk on the phone with friends or family?: three or more times per week How often do you get together with friends or relatives?: twice per week Do you belong to any clubs or organized social groups?: no Panel score (0-1 are the most socially isolated patients): 2 What type of physical activity do you participate in: walking Special sarah needs: No Do you feel safe at home: Yes Do you feel safe in your relationship?: Yes Victim of physical abuse: No Victim of emotional abuse: No Victim of sexual abuse: No Female Reproductive History Menstrual Age of Menarche: 12 control method: pills History History 4 Para 2 Hx # Term Pregnancies 2 Multiple births 0 Hx # Pregnancies 0 Ectopic pregnancies 0 AB induced 0 Hx Number of Living Children 2 AB spontaneous 1 Past Pregnancies Del. 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 GBS pos. Meds Allergies and Home Medications Allergies Allergy/AdvReac Type Severity Reaction Status Date / Time No Known Allergies Allergy Verified 03/15/25 11:09 Home Medications ?Medication ?Instructions ?Recorded ?Confirmed ?Type vitamins with calcium 1 tab PO DAILY #90 tabs 09/07/24 03/15/25 Rx no.72-iron 27 mg-folic acid 1 mg tablet ( Plus (calcium carbonate)) loperamide 2 mg capsule 2 mg PO Q6H PRN loose stool #7 caps 09/26/24 03/15/25 Rx ondansetron 4 mg disintegrating 4 mg PO Q6H PRN nausea and 09/26/24 03/15/25 Rx tablet vomiting #30 tabs ferrous sulfate 325 mg (65 mg 325 mg PO DAILY #30 tabs 01/08/25 03/15/25 Rx iron) tablet Exam Physical Exam Vital signs: Temp Pulse Resp BP Pulse Ox 97.7 F 68 16 121/77 97 03/26/25 09:43 03/26/25 09:43 03/26/25 09:43 03/26/25 09:43 03/26/25 09:43 Vital Signs Reviewed: Yes Constitutional Constitutional: no acute distress and cooperative Detailed Labor and Delivery Exam Dilation: 1.5 Effacement (%): 50 (estimated, pt tolerated exam poorly) station: -2 Cervix position: posterior Consistency: medium Martinez Score: Cervical Points Exam 0 1 2 3 Dilation Closed 1-2cm 3-4 cm 5-6cm Effacement 0-30% 40-50% 60-70% 80% Consistency Firm Medium Soft Station -3 -2 -1,0 +1,+2 Position Posterior Mid Anterior MARTINEZ Score(Cervical Ripeness Score): 4 (estimated d/t poor tolerance of vaginal exam) Amniotic Membrane Status: Intact Fetus A Heart Rate Baseline: 130 Monitor Accelerations: Present Monitor Decelerations: None Variability: Moderate (6-25 BPM) Categories: Category I Est. Weight: 8 lb 13.096 oz Est. Weight: 4000 gms HEENT Exam HEENT Exam: Normal Neck Exam Neck Exam: Normal Chest/Brest/Axilla Exam Chest Exam: Normal Breast Exam Breast Exam: Not Done Respiratory Exam Respiratory Exam: Normal Cardiovascular Exam Cardiovascular Exam: Normal Abdominal Exam Abdominal Exam: Normal (gravid, nontender) Rectal Exam Rectal Exam: Normal Exam Exam: Normal Extremities Exam Extremities Exam: Normal Back/Spine/Pelvis Exam Back Exam: Normal Pelvis Adequate: Yes (prove to 710) Skin Exam Skin Exam: Normal Neurological Exam Neurological Exam: Normal Psychiatric Exam Psychiatric Exam: Normal Results Results Group Beta Strep: Negative Blood Type: O+ Rubella Status: Immune Varicella Immunity: Immune Abnormal Lab Findings: Abnormal Labs 03/26/25 09:28 RBC 3.90 L Hgb 10.7 L Hct 33.3 L RDW 19.3 H Risk Assessment Risk for Shoulder Dystocia Historical/Initial OB: NEGATIVE FOR: Pelvic Abnormality, Pre- BMI>30, Previous Shoulder Dystocia or Previous Macrosomia 36 Weeks: NEGATIVE FOR: Current Gestational DM, EFW>4500gms or Maternal Weight Gain>40lbs 40 Weeks: POSTIVE FOR: Post Dates; NEGATIVE FOR: EFW> 4500 gms or Maternal Weight Gain >40lb Increased Risk?: Yes Delivery Plan @ 36wks: Delivery Plan @ 40 wks: Risk for Pre-Eclampsia Yes, if one or more: NEGATIVE FOR: Hx Pre-E/Gest HTN, Chronic HTN, Multiple Gestation, Pre-gestational DM, Renal Disease, Systemic Lupus or APA Syndrome Yes, if 2 or more: NEGATIVE FOR: Nulliparity, Age>= 35 yrs, >10yr btwn pregnancies, BMI>30, ethinicty, Mother/Sister w/ Pre-E or Previous IUGR Risk for Post- Hemorrhage Initial: NEGATIVE FOR: Multiple Gestation, Previous PPH, Known Clotting Deficiency, Grand Multiparity or Anticoagulation 36 Weeks: NEGATIVE FOR: Anemia, hgb<10, Low platelets(thrombocytopenia), Gestational HTN or Pre-E, Polyhydraminios or EFW>4500gms 40 Weeks: NEGATIVE FOR: Anemia, hgb<10, Low platelets (thrombocytopenia), Gestation HTN or Pre-E, Polyhydraminios or EFW>4500gms At Risk?: Yes (d/t IOL process) Counseled re: Active Management: Yes Risks Reviewed Risks Reviewed Upon Admission: Yes
[2025-03-26] MEDS: miSOPROStol 50 MCG TAB PO ×2 (12:27→16:55)
[2025-03-26] MEDS: Oxytocin 10 UNITS/ML VIAL IM (21:58)
[2025-03-26] MEDS: miSOPROStol 200 MCG TAB 600 MCG SL (22:10)
[2025-03-26] MEDS: Methylergonovine 0.2 MG/ML VIAL (22:18)
--- NOTE | 2025-03-26 22:42 | W.OBDELIVERY ---
Date of service: 03/26/25 Time of Service: 22:42 OB Labor/ Delivery Information Baby A Delivery Delivery Method: Spontaneaous Presentation: Cephalic Cephalic Position: Vertex Vertex Position: Right Occipital Anterior Cord Description-Baby A: 3 Vessels and Clamped/Cut Amniotic Fluid: Clear Quantitative Blood Loss: 400 Delivery Outcome: Liveborn Infant Transferred: Remains with Mother Note: First stage: Pt received 2nd dose of 50 mcg misoprostel PO @ 1700 after category 1 tracing documented, pt was comfortable and reported minor cramps now and then. At 2030 pt stated her contractions had become more painful since 1900, and she felt back pain and fullness in the rectum area, category 1 tracing again documented with contractions q2-4 minutes apart. Pt was coping very well, declined vaginal exam and stated she wanted to walk around the room as she felt better standing up. At 2139 pt's partner came to nurses station to report vaginal bleeding, nurse summoned CNM and reported pt was wanting to push. CNM arrived in room to find patient hands and knees on floor using nitrous inbetween involuntary bearing down, evidence of SROM of clear fluid noted between knees and head on the perineum. of a vigorous female over attempted intact perineum, shoulders delivered without resistance, passed between mother's legs while pt sat up. Cord clamped and cut by FOB at 3 minutes, pt assisted to bed, cord blood collected and pitocin 10 units given IM. [place] placenta delivered intact with 3VC, initially brisk bleeding controlled with fundal massage and misoprostel 600 mcg given PO. Small perineal laceration repaired using topical benzocaine 20% aerosol anesthetic for placement of 1 stitch 3.0 Rapide. Moderate amt of clots evacuated from os and fundus firm below umbilicus, methergine 0.2 mg IM given as precaution due to precipitous nature of delivery. Strong family bonding observed, apgars 9/9, pt plans formula feeding, weight 4205 gms. Providers Nurse Administrative Assistant Office Manager: Kim Connors Nurse: Evon Rondon Nurse: Cathleen Connors Other: Hansa Jones Labor/Delivery Information Number of Babies in Womb: 1 Steroids Given: None Reason Steroids Not Administered: N/A Group Beta Strep: Negative Antibiotics Administered: No Rubella Status: Immune Blood Type: O+ Varicella Immunity: Immune Maternal Complications: Precipitous Labor(<3hrs) Shoulder Dystocia: No Stages of Labor Onset of Labor Date: 03/26/25 Onset of Labor Time: 09:20 Complete Dilatation Date: 03/26/25 ROM Baby A: 03/26/25 Delivery Date-Baby A: 03/26/25 Delivery Time-Baby A: 21:54 Placenta Delivery Date-Baby A: 03/26/25 Placenta Delivery Time-Baby A: 22:07 Labor-Stage 3 Duration: 13 minutes Total Length of Labor-Baby A: 12 hours and 34 minutes Placenta Status: Delivered Baby A Gender: Female Gestational Status: Term (39-41.6 wks) Gestational Age in Weeks/Days: 41 Weeks and 3 Days weight: 9 lb 4.327 oz Weight Comment: 4205 gms Length-Baby A: 20 in Score-1 Minute Interval(Baby A) Heart Rate-1 minute: 100 BPM or Greater Respiratory Effort- 1 minute: Spontaneous/Strong Cry Muscle Tone-1 minute: Active Movement Reflex Response-1 minute: Prompt Response Color-1 minute: Bluish Hands or Feet Total Score-1 minute: 9 Score-5 Minute Interval(Baby A) Heart Rate- 5 minute: 100 BPM or Greater Respiratory Effort-5 minute: Spontaneous/Strong Cry Muscle Tone-5 minute: Active Movement Reflex Response-5 minute: Prompt Response Color-5 minute: Bluish Hands or Feet Total Score- 5 minute: 9
[2025-03-26] MEDS: Benzocaine 20% 60 ML CAN (23:19)
[2025-03-27] VITALS (7 sets, daily range): BP systolic 111–129; BP diastolic 74–94; PULSE 58–85; RESP 16–18; TEMP 36.4–37.1; O2SAT 97–98
[2025-03-27] MEDS: Methylergonovine 0.2 MG TAB PO ×3 (03:59→11:59)
[2025-03-27] MEDS: Acetaminophen 325 MG TAB 650 MG PO ×3 (04:04→18:07)
[2025-03-27] MEDS: Ibuprofen 600 MG TAB PO ×3 (04:06→19:54)
[2025-03-27] MEDS: Hamamelis Leaf/Glycerin 100 EACH BOX PR (04:07)
[2025-03-27] MEDS: Dibucaine 1% 28 GM TUBE TP (04:07)
--- NOTE | 2025-03-27 18:28 | W.PM.OBPNV1 ---
Date of service: 03/27/25 Time of Service: 18:29 Assessment and Plan Assessment and plan (1) Term delivered: Status: Acute Assessment and plan: A: PPD#1, nml recovery Happy with experience P: Continue routine PP care, pt chooses formula feeding Plan discharge in the morning Subjective Subjective Patient comments: No complaints, Pain well controlled, Tolerating diet and Flatus present Patient's Mood: happy baby status: Doing well, Nursing well, Rooming in and Strong Bonding Observed feeding status: Exclusively formula feeding Exam Physical Exam Vital signs: Temp Pulse Resp BP Pulse Ox 98.1 F 60 18 117/74 98 03/27/25 07:45 03/27/25 11:30 03/27/25 11:30 03/27/25 11:30 03/27/25 11:30 Vital Signs Reviewed: Yes Constitutional Constitutional: no acute distress, average body habitus and cooperative HEENT Exam HEENT Exam: Normal Neck Exam Neck Exam: Normal Breast Exam Bilateral: Breast Exam: Normal and Soft Nipple Exam: Normal and Uninjured Respiratory Exam Respiratory Exam: Normal Cardiovascular Exam Cardiovascular Exam: Normal Abdominal Exam Abdomen: Other (soft, nontender) Fundal Exam Fundus: Below Umbilicus and Firm Rectal Exam Rectal Exam: Normal Exam Patient deferred: perineal exam Perineum: Repair Intact Extremities Exam Extremity Exam: Normal, Full ROM and Warm to Touch Back/Spine/Pelvis Exam Back Exam: Normal Skin Exam Skin Exam: Normal Neurological Exam Neurological Exam: Normal Psychiatric Exam Psychiatric Exam: Normal
--- NOTE | 2025-03-28 06:34 | W.PM.OBPNV1 ---
Date of service: 03/28/25 Time of Service: 06:34 Assessment and Plan Assessment and plan (1) Term delivered: Status: Acute Assessment and plan: A: PPD#2, nml recovery Happy with experience P: Discharge to home planned for today Written instructions reviewed and given to pt F/up at 2 & 6 wks Desires combined OC's for BCM, will start at 6 wks PP Subjective Subjective Patient comments: No complaints, Pain well controlled, Tolerating diet and Flatus present Patient's Mood: happy [place] baby status: Doing well, Rooming in and Strong Bonding Observed feeding status: Exclusively formula feeding Exam Physical Exam Vital signs: Temp Pulse Resp BP Pulse Ox 97.5 F L 84 16 111/79 97 03/27/25 19:55 03/27/25 19:55 03/27/25 19:55 03/27/25 19:55 03/27/25 19:55 Vital Signs Reviewed: Yes Constitutional Constitutional: no acute distress, average body habitus and cooperative HEENT Exam HEENT Exam: Normal Neck Exam Neck Exam: Normal Breast Exam Bilateral: Breast Exam: Normal and Soft Respiratory Exam Respiratory Exam: Normal Cardiovascular Exam Cardiovascular Exam: Normal Abdominal Exam Abdomen: Other (soft, nontender) Fundal Exam Fundus: Below Umbilicus and Firm Rectal Exam Rectal Exam: Normal Exam Patient deferred: perineal exam Perineum: Repair Intact Extremities Exam Extremity Exam: Normal, Full ROM and Warm to Touch Back/Spine/Pelvis Exam Back Exam: Normal Skin Exam Skin Exam: Normal Neurological Exam Neurological Exam: Normal Psychiatric Exam Psychiatric Exam: Normal Results Hemoglobin/Hematocrit: Hgb 10.7 g/dL (11.2-15.7) L 03/26/25 09:28 Hct 33.3 % (36.0-46.0) L 03/26/25 09:28 Abnormal Lab Findings: Abnormal Labs 03/26/25 09:28 RBC 3.90 L Hgb 10.7 L Hct 33.3 L RDW 19.3 H
--- NOTE | 2025-03-28 06:37 | DSE_ITS ---
Date of service: 03/28/25 Time of Service: 06:37 DS: Diagnosis Discharge Diagnosis (1) Term delivered: Status: Acute Discharge Plan Disposition Patient Disposition: Home Condition: Good Discharge Details Reason For Visit: Induction for Postdates Admit Date/Time: 03/26/25 09:16 Admit Provider: Kim Connors Attending Provider: Kim Connors Primary Care Provider: Unknown,Unknown Hospital Course Hospital Course: Admitted for induction of labor at 41+3 wks, received 2 doses of misoprostel and accomplished on HD#1, nml course, discharge on PPD#2 Home Meds and New Rx's Prescriptions: No Action Plus (calcium carb) 27 mg iron- 1 mg tablet 1 tab PO DAILY Qty: 90 4RF ondansetron 4 mg tablet,disintegrating 4 mg PO Q6H PRN (Reason: nausea and vomiting) Qty: 30 0RF loperamide 2 mg capsule 2 mg PO Q6H PRN (Reason: loose stool) Qty: 7 0RF ferrous sulfate 325 mg (65 mg iron) tablet 325 mg PO DAILY Qty: 30 4RF Discharge Instructions Additional Instructions: Please keep 2 and 6 wk appointments with the midwives, call for any and all concerns. Stand Alone Forms: BC Post Vaginal Deliver Activity:: Activity as Tolerated Equipment/Supplies:: No Equipment Needed Diet:: Normal Diet OB:DS Summary Summary Vaginal Delivery Method: Spontaneaous Episiotomy Description: None Contraception Discussed Contraception Discussed: Yes Contraceptive Plan: Control Pill/Patch, [place] Gender-Baby A: Female weight: 9 lb 4.327 oz Status at Discharge Functional status at discharge: independent ambulation Overall status at discharge: patient is progressing back to baseline Mental Status: mental status grossly normal Speech and Movement: speech and movement normal and speech clear Mood: congruent mood Affect: normal affect Exam Physical Exam Vital signs: Temp Pulse Resp BP Pulse Ox 97.5 F L 84 16 111/79 97 03/27/25 19:55 03/27/25 19:55 03/27/25 19:55 03/27/25 19:55 03/27/25 19:55 Constitutional Constitutional: no acute distress, average body habitus and cooperative HEENT Exam HEENT Exam: Normal Neck Exam Neck Exam: Normal Breast Exam Bilateral: Breast Exam: Normal and Soft Respiratory Exam Respiratory Exam: Normal Cardiovascular Exam Cardiovascular Exam: Normal Abdominal Exam Abdomen: Other (soft, nontender) Fundal Exam Fundus: Below Umbilicus and Firm Rectal Exam Rectal Exam: Normal Exam Patient deferred: perineal exam Perineum: Repair Intact Extremities Exam Extremity Exam: Normal, Full ROM and Warm to Touch Back/Spine/Pelvis Exam Back Exam: Normal Skin Exam Skin Exam: Normal Neurological Exam Neurological Exam: Normal Psychiatric Exam Psychiatric Exam: Normal PFSH All Active Problems (Updated 03/28/25 @ 06:31 by Kim Connors) Term delivered (Acute) Migraine (Chronic) dx at age 15, resolved with first , now reoccurring in current , no medications currently Medical History (Updated 03/28/25 @ 06:31 by Kim Connors) Family history of macrocephaly pt's son had choroidal cyst fenestrated 07/2024 in [place] 41 weeks gestation of Encounter for induction of labor Oral contraceptive use Anemia Surgical History [place] teeth extracted Family History Mother Essential hypertension Hyperlipidemia Father Essential hypertension Other Personal history of malignant neoplasm maternal- thyroid, breast,skin Hyperlipidemia MGM, MGF, PGF, PGM Myocardial infarction MGF, MGM, paternal side Stroke MGF, PGF Diabetes Maternal Great Grandparents, Paternal Grandmother Type II Breast cancer Maternal Great Aunt over age 50 Cancer Maternal Grandfather, FOB's mom Social History (Updated 08/27/24 @ 09:55 by Roxanna Yang CNM) Smoking/Tobacco Use Status: Never Smoking risk assessment performed?: Yes Alcohol Intake: never Drug use: Never Household members: significant other, children and other Details: RIA- Sophia Li (7y.o) Housing: house Number of Children: 3 current occupation: [employer]. Plans to work part-time from home Pets and animals: Yes Pets and animals: cat(s) and dog(s) Sexually active: Yes Do you think of yourself as: straight/heterosexual Current gender identity: female What is your relationship status?: living with partner How often do you talk on the phone with friends or family?: three or more times per week How often do you get together with friends or relatives?: twice per week Do you belong to any clubs or organized social groups?: no Panel score (0-1 are the most socially isolated patients): 2 What type of physical activity do you participate in: walking Special sarah needs: No Do you feel safe at home: Yes Do you feel safe in your relationship?: Yes Victim of physical abuse: No Victim of emotional abuse: No Victim of sexual abuse: No Female Reproductive History Menstrual Age of Menarche: 12 control method: pills History History 4 Para 2 Hx # Term Pregnancies 2 Multiple births 0 Hx # Pregnancies 0 Ectopic pregnancies 0 AB induced 0 Hx Number of Living Children 2 AB spontaneous 1 Past Pregnancies Del. 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 GBS pos. DS: Data Vitals/I&O Vitals and I&O: Vital Signs Temperature 97.5 F L 03/27/25 19:55 Temperature Source Oral 03/27/25 19:55 Pulse 84 03/27/25 19:55 Pulse Rhythm Regular 03/27/25 19:56 Respiratory Rate 16 03/27/25 19:55 Blood Pressure 111/79 03/27/25 19:55 Blood Pressure Mean 89 03/27/25 19:55 Pulse Oximetry 97 03/27/25 19:55 Oxygen Delivery Method Room Air 03/26/25 09:43 Oxygen Flow Rate 0 03/26/25 09:43 Pain Level 0 03/27/25 18:07 Intake & Output 03/27/25 03/27/25 03/28/25 11:59 23:59 11:59 Output Total 1288 / 1288 Balance -1288 / -1288 Output: Urine 1100 / 1100 Blood 188 / 188 Other: Urine Color Pale Yellow Yellow Urine Appearance Clear Urine Odor None
[2025-03-28] MEDS: Ibuprofen 600 MG TAB PO (07:44)
[2025-03-28] MEDS: Docusate Sodium 100 MG CAP PO (07:44)
[2025-03-28 07:48] VITALS: BP 114/73; PULSE 79; RESP 18; TEMP 36.5; O2SAT 98
== END 2025-03-28 10:45 | disposition home or self-care (01) | DRG 806 ==
PROVIDERS: Admitting Provider Advanced Practice Midwife; Visit Provider Advanced Practice Midwife
DX: O48.0 Post-term pregnancy (principal); O99.354 Diseases of the nervous system complicating childbirth; Z37.0 Single live birth; O70.0 First degree perineal laceration during delivery; Z3A.41 41 weeks gestation of pregnancy; O99.02 Anemia complicating childbirth; D64.9 Anemia, unspecified; G43.909 Migraine, unspecified, not intractable, without status migrainosus
CPT/HCPCS: 86850; 86900; 86901; 59200; 85025; J2210; J2590